=== PATIENT | female | born 1940 | race Caucasian/White ===

== ENCOUNTER → 2019-03-11 14:02 | Outpatient (CLI) | payer MEDICARE, OTHER, SELFPAY ==
[2019-03-11 14:46] LABS: Hematocrit 39.2 % (36-46); Hemoglobin 13.1 g/dL (12.0-16.0); Mean Corpuscular HGB Conc 33.4 % (30-36); Mean Corpuscular Hemoglobin 30.9 PG (26-34); Mean Corpuscular Volume 92.7 fL (80-100); Platelet Count 183 X10^3/uL (150-400); Red Blood Cell Count 4.22 X10^6/uL (4.0-5.2); Red Cell Distribution Width 12.7 % (11.6-14.8); White Blood Cell Count 6.5 X10^3/uL (4.5-11.0)
[2019-03-11 15:09] LABS: Hemoglobin A1C% w Est Avg Glu 5.2 % (4.0-6.0)
[2019-03-11 15:17] LABS: Blood Urea Nitrogen 28 mg/dL (7-17); Carbon Dioxide 30 mmol/L (22-32); Chloride 101 mmol/L (98-107); Estimated Glomerular Filt Rate > 60.0 mL/min (>60); Glucose 85 mg/dL (80-110); HEMOLYSIS < 15 (0-50); Potassium 4.2 mmol/L (3.4-5.1); Sodium 135 mmol/L (137-145)
[2019-03-11 15:22] LABS: Transferrin 247 mg/dL (206-381)
[2019-03-11 15:23] LABS: Bacteria Urine None Seen
[2019-03-11 15:36] LABS: Appearance Urine UA CLEAR; Bilirubin Urine UA NEGATIVE (NEGATIVE); Color Urine UA YELLOW; Glucose Urine UA NEGATIVE (Negative); Ketones Urine UA NEGATIVE (NEGATIVE); Leukocyte Esterase Urine UA 1+ (NEGATIVE); Nitrite Urine UA NEGATIVE (Negative); Occult Blood Urine UA NEGATIVE (Negative); Protein Urine UA NEGATIVE (Negative); Urobilinogen Urine UA 0.2 E.U./dL (0.2); pH Urine UA 6.5 (4.5-8.0)
[2019-03-11 15:52] LABS: RBC Urine 0-1/HPF (0-5/HPF); Squamous Epithelial Cell Urine 0-1 /HPF (0-5/HPF); Transitional Epi Cells Urine 0-1/HPF (0-5/HPF); WBC Urine 1-5/HPF (0-5/HPF)
== END ==
PROVIDERS: PCP Family Medicine; Visit Provider Orthopaedic Surgery
DX: E61.1 Iron deficiency (principal); N39.0 Urinary tract infection, site not specified; R73.9 Hyperglycemia, unspecified; Z01.818 Encounter for other preprocedural examination
CPT/HCPCS: 36415; 80048; 81001; 83036; 84466; 85027; 93005

== ENCOUNTER 2019-04-02 06:14 | Day surgery (SDC) | payer MEDICARE, OTHER, SELFPAY ==
[2019-03-22 08:57] VITALS: BMI 27.4
[2019-04-02] VITALS (14 sets, daily range): BP systolic 109–167; BP diastolic 40–73; PULSE 62–80; RESP 12–18; TEMP 35.7–36.8; O2SAT 95–99; BMI 28.8
--- NOTE | 2019-04-02 06:35 | DI.RAD.S_ITS ---
PROCEDURE: XR KNEE RT 1TO2V INDICATIONS: post op TECHNIQUE: 2 view(s) of the knee acquired. COMPARISON: None. FINDINGS: Bones: Patient is status post knee joint arthroplasty. Hardware components are in expected positions. Visualized bony structures are intact. Soft tissues: Overlying postoperative changes are noted. IMPRESSION: Expected immediate postoperative appearance, status post total right knee arthroplasty. Dictated by: Faraz Carranza M.D. on 04/02/2019 at 10:14 Approved by: Faraz Carranza M.D. on 04/02/2019 at 10:14
[2019-04-02] MEDS: ACETAMINOPHEN 325 MG TABLET 975 MG PO ×3 (06:58→20:40)
[2019-04-02] MEDS: PREGABALIN 75 MG CAPSULE PO (06:58)
[2019-04-02] MEDS: CELECOXIB 200 MG CAPSULE PO (06:58)
[2019-04-02] MEDS: MIDAZOLAM 2 MG/2 ML VIAL IV (07:40)
[2019-04-02] MEDS: fentaNYL 100 MCG/2 ML INJ 50 MCG IV ×2 (07:42→07:47)
--- NOTE | 2019-04-02 07:42 | PM.PREOP ---
Pre-operative Note Interval Note History & Physical reviewed/Exam performed by Physician: Yes Changes to H&P: No
--- NOTE | 2019-04-02 07:42 | PM.OP.1 ---
Operative Date/Time/Diagnoses Date of procedure: 04/02/19 Time of procedure: 09:20 Pre-op diagnosis: Right knee osteoarthritis Post-op diagnosis: same Procedure & Clinicians Procedure: Right total knee replacement Same procedure as scheduled: Yes Indications: The patient has had progressively worsening right knee pain with radiographic changes consistent with arthritis. Non-operative management has failed and the patient has requested total knee replacement. The risks, benefits and alternatives to surgery were discussed with the patient prior to proceeding. Risks discussed included, but were not limited to, failure to relieve pain, stiffness, infection, nerve damage, deep venous thrombosis, pulmonary embolism, stroke, coma, heart attack, permanent paralysis and , as well as the potential need for eventual revision of the prosthetic. Surgeon: Zach Kiser Sweeper Cleaner Industrial: Jovana Nichols Click Yes if Unassisted: No Anesthesia Type: General, Spinal, Peripheral nerve block and Local Operative Notes Findings: Significant medial and mild patellofemoral osteoarthritis. Closure Type: primary Specimen(s): none sent Prosthetic devices, grafts, tissues, transplants, or devices: Implants used in this procedure were manufactured by the [employer] and [employer] and included the BCS II Journey total knee replacement with a size 7 right cobalt chromium femoral component, a size 6 right non porous tibial base plate, a 10 mm polyethylene insert for the tibia and a 32 mm oval Cleopatra II patellar component. Applied: implant(s) Estimated Blood Loss (mL): 25 Blood products transfused: none Tourniquet time (min): 55 Procedure in detail: The patient was seen in the pre-operative area, where the patient identified the right knee as the operative site and this was marked with my initials. The patient received pre-operative antibiotics, and was taken to the operating room and placed on the operative table in the supine position. After satisfactory anesthesia, a evp global multimedia sales out was performed. The right leg was encircled with a tourniquet about the proximal thigh, and the leg was prepared from the toes to the tourniquet with ChloroPrep in the usual fashion and draped through sterile drapes. The leg was elevated and exsanguinated with Eschmark bandage and the tourniquet inflated to 250 mmHg pressure. The knee was approached through an approximately 18 cm incision centered over the patella and carried into the knee through a medial parapatellar arthrotomy. The anterior osteophytes and soft tissues were removed. The rotational landmarks of Renee's line and the transepicondylar axis were marked on the femur with electrocautery, and intramedullary guide holes for the femur and tibia were created. The distal femoral cut was made in 6 degrees of valgus using the intramedullary guide at the primary cut setting. The proximal tibial cut was then made using the intramedullary guide, taking 9 mm of bone off the less involved side. The extension gap was checked and the rotation of the femoral component confirmed with the gap balancing system. The anterior, posterior and chamfer cuts were then made. The posterior osteophytes and soft tissues were then removed. The posterior capsule was injected with part of a mixture of 50 ml 0.25% Marcaine mixed with 20 ml Exparel and 4 mg of morphine for post-operative pain control. The remainder of this mixture was injected into the capsule and subcutaneous tissues during cement curing. The tibia was prepared with the rotation set by an extra medullary guide. Trial tibial and femoral components were then placed and the intercondylar notch cut through the femoral trial. Range of motion was 0-135 degrees, with good stability throughout the range. The patella was then cut to accommodate the patellar prosthetic. There was no need for a lateral release. The trials were then removed, and the femoral hole plugged with a bone plug. The bone was prepared with pulsatile lavage, and dried with a sponge. Cement was applied and the final prosthetics placed. Excess cement was removed during and after cement curing. After confirming there was no extruded cement posteriorly, the final tibial insert was placed. The knee was copiously irrigated and the tourniquet deflated. Hemostasis was obtained. The capsule was closed with interrupted # 2 polyester suture. The subcutaneous layer was closed with 3-0 Vicryl, and the skin with a running 3-0 V-Lock suture and SteriStrips. An Aquacel Ag dressing was applied and the patient was taken to recovery having tolerated the procedure well. Complications: none Condition: stable Disposition: PACU Plan for aftercare: The patient will be maintained on a standard total knee replacement protocol with weight bearing as tolerated. The patient will receive aspirin and sequential compression devices for DVT prophylaxis. The patient will be discharged home when safe for the home environment.
--- NOTE | 2019-04-02 07:53 | SUR.PREOP ---
Block start time [0740] . Monitoring initiated and maintained throughout procedure. Oxygen and medications given per anesthesiologist instructions. Patient remained stable throughout procedure, no adverse reactions noted. Block end time [0748].
--- NOTE | 2019-04-02 08:20 | SUR.OPER ---
Supine on padded OR bed. Pillow under head, arms secured on padded armboards <90 degree abduction. Safety belt across torso. Non-operative leg secured with tape over blanket over lower leg. Operative leg secured in DeMayo positioner. Foam padded brace at thigh of operative leg.
[2019-04-02] MEDS: BUPIVACAINE 0.25% W/ EPI 30 ML VIAL 60 ML INJ (09:15)
[2019-04-02] MEDS: BUPIVACAINE LIPOSOME 266 MG/20 ML VIAL INJ (09:17)
[2019-04-02] MEDS: CEFAZOLIN 1 GM VIAL IV (09:17)
[2019-04-02] MEDS: MORPHINE 4 MG/ML INJ INJ (09:17)
--- NOTE | 2019-04-02 10:55 | PC.NURSE ---
Pt to room 217 via bed from PACU. Pt denies pain, nausea, shortness of breath or confusion. Pt oriented to room, call light, bed controls, and tv controls. Pt now drinking coffee and resting with family at the bedside.
[2019-04-02] MEDS: LACTATED RINGERS 1,000 ML 125 ML IV ×2 (11:26→19:09)
--- NOTE | 2019-04-02 14:25 | PT.IIE ---
Current Diagnoses Unilateral primary osteoarthritis, right knee (04/02/19) Surgery Performed Operation Date: 04/02/19 07:45 Actual Procedures p Total Knee Arthroplasty(Right) - Zach Kiser MD Surgical History (Last Updated 03/22/19 @ 09:15 by Corazon Morales RN) Hx of appendectomy (Acute) Hx of laminectomy (Acute) Hx of tonsillectomy (Acute) Medical History (Last Updated 03/22/19 @ 09:15 by Corazon Morales RN) Anxiety (Acute) Arthritis (Acute) Depression (Acute) HTN (hypertension) (Acute) Heartburn (Acute) Osteoarthritis (Acute) Physical Therapy Inpatient Evaluation/Re-Eval M1 PT/OT-IP Prior Functional Status Start: 04/02/19 11:33 Freq: NEEDED Status: Active Protocol: Document 04/02/19 14:25 AB (Rec: 04/02/19 15:37 AB [id number]) Medical Review Prior Functional Status Medical History Reviewed Yes Diet/Fluid Consistency Regular Communication Able to make needs known. Mobility and Gait pt stated that she is independent with all mobilities and ambulation without AD but uses a SPC for long distance ambulation. Social History Household Members spouse Living Arrangements House Number of Floors (Floors) One Floor Number of Stairs To Enter/Railing? no ANIKA Home Environment Standard Height Toilet Tub/Shower Home Equipment Front Wheel Walker Straight Cane Raised Toilet Seat w/Armrests Shower Seat with Backrest Grab Bars In Shower Employment Status Retired Additional Social History Comment pt is scheduled for outpt PT at [facility]. M2 PT-IP Current Condition Start: 04/02/19 11:33 Freq: NEEDED Status: Active Protocol: Document 04/02/19 14:25 AB (Rec: 04/02/19 15:37 AB [id number]) Physical Therapy Current Condition Current Condition Evaluation Date 04/02/19 Treatment Diagnosis s/p R TKA; difficulty in walking Onset Date 04/02/19 Weight Bearing Status Weight Bearing Status Weight Bear as Tolerated M3 PT-IP Subjective Start: 04/02/19 11:33 Freq: NEEDED Status: Active Protocol: Document 04/02/19 14:25 AB (Rec: 04/02/19 15:37 AB [id number]) Subjective Physical Therapy Visit Type Type Initial Evaluation Visit Start Time 14:25 Visit Stop Time 15:20 Total Visit Minutes 55 Number of SAS SQL DEVELOPER Visits 0 Physical Therapy Visit Comments Patient Comments pt agreeable to do PT Therapy Pain Assessment Pain When Pain Assessed At Rest Pain Present Pain Present Pain Reported Location Right Knee Intensity 3 Scale Used increases to 6/10 with mobility Pain Behaviors Guarding Pain Management Techniques Apply Cold Re-positioning Timing of Activity with Medications M4 PT-IP Mobility and Gait Start: 04/02/19 11:33 Freq: NEEDED Status: Active Protocol: Document 04/02/19 14:25 AB (Rec: 04/02/19 15:37 AB [id number]) PT-Bed Mobility Assessment Supine to Sit Supine to Sit Standby Assistance Sit to Supine Sit to Supine Standby Assistance Scooting Scooting to Edge of Bed Standby Assistance PT-Transfer Assessment Sit to and From Stand Sit to and from Stand Minimal Assistance Moderate Assistance 1 Person Assistance Use of Upper Extremities Equipment Transfer Assistive Device Gait Belt Front Wheeled Walker Orthotic/Prosthetic Devices or Brace: No Transfers Transfer Destination Bedside Commode Transfer Technique Stand Step Pivot Transfer Ability Level of Assist Moderate Assistance 1 Person Assistance Use of Upper Extremities Comments Mobility Comments pt completed bed mobility supine to sit SBA. pt was able to sit on EOB without c/o dizziness. pt completed sit to stand from EOB mod A and cues. upon standing, pt was voiding. instructed pt to sit back down. call light on for assistance. positioned bedside commode next to the bed. pt completed stand step transfer using FWW mod A and cues. pt completed sit to stand again min to mod A and cues from bedside commode but pt continues to void and has to sit back down. pt completed sit to stand again after a few minutes requiring min to mod A and cues. pt required mod A to maintain standing balance using FWW while pt is completing hygiene care. assisted pt with hygiene care from behind. pt with (+) LOB while doing hygiene care and required mod A to reposition. pt was able to ambulate ~ 3 ft towards the chair using FWW mod A and cues. pt agreed to do further ambulation after and completed ~ 12 ft of ambulation using FWW. pt agreed to sit up on chair after and assisted with positioning on the chair. call light and table placed within reach. Gait Assessment Gait Gait Assistance Required: Moderate Assistance Distance (Feet) 12 Able to Maintain Weight Bearing Status Yes During Gait Assistive Devices Assistive Device Gait Belt Front Wheeled Walker Orthotic/Prosthetic Devices or Brace: No Gait Deviations General Gait Pattern Antalgic Decreased Stride Length Decreased Feet Clearance Narrow Based Gait Factors Limiting Gait Function Factors Limiting Gait Function Decreased Activity Tolerance Decreased Strength Limited Range of Motion Pain Poor Balance Poor Safety Awareness Comments Gait Comments pt presents with antalgic gait and requires cues for quads activation on RLE. PT-Balance Assessment Sitting Balance and Reactions Static Sitting Balance Ability Good Dynamic Sitting Balance Ability Good Standing Balance and Reactions Static Standing Balance Ability Fair Dynamic Standing Balance Ability Fair Device Used FWW M5 PT-IP Objective Assessments Start: 04/02/19 11:33 Freq: NEEDED Status: Active Protocol: Document 04/02/19 14:25 AB (Rec: 04/02/19 15:37 AB [id number]) Orientation Orientation/Cognition Level of Alertness Alert Orientation Name Place Situation Language Function Ability No Deficits Noted Safety Awareness Decreased Safety Awareness Memory Description Short Term Impaired Gross Range of Motion Lower Extremity ROM Impairments R knee flexion ~ 80 deg Strength Lower Extremity Strength Assessment Right Impaired Knee 4-/5 Coordination Assessment Gross Coordination Gross Coordination WNL Sensation Assessment Sensation Gross Sensation WNL Muscle Tone Muscle Tone WNL Yes M6 PT-IP Treatment Start: 04/02/19 11:33 Freq: NEEDED Status: Active Protocol: Document 04/02/19 14:25 AB (Rec: 04/02/19 15:37 AB [id number]) Physical Therapy Treatment Exercises Exercises Heel Slides Education Education Provided Precautions Weight Bearing Status Post-Op Packet Safety M7 PT-IP Assessment and Plan Start: 04/02/19 11:33 Freq: NEEDED Status: Active Protocol: Document 04/02/19 14:25 AB (Rec: 04/02/19 15:37 AB [id number]) PT Summary Assessment and Plan Potential Rehabilitation Potential Good Status of Condition at Evaluation Stable Summary Impairments Pain ROM Strength Balance Coordination Sensation Tone Cognition Bed Mobility Transfers Gait Activity Tolerance Assessment Summary pt requires min to mod A with mobility and plans to go home with spouse to assist her. caregiver training will be conducted when appropriate and spouse plans to be here at around 9 am tomorrow 04/03/19 for possible caregiver training. will continue to assess pt. Goals Bed Mobility Goal Standby Assistance Transfer Goal Standby Assistance Front Wheeled Walker Gait Goal Standby Assistance Front Wheel Walker Gait Distance 250 Days to Meet Goals 3 Frequency of Treatment Frequency Of Treatment Twice a Day Treatment Plan Physical Therapy Treatment Plan Bed Mobility Training Transfer Training Gait Training Therapeutic Exercise Balance Retraining Post Op Education Discharge Planning Hot or Cold Pack Neuromuscular Re-ed Coordination Retraining Manual Therapy Other Recommendations and Next Treatment ambulation, caregiver training Focus Recommendations To Nursing Amount of Assist Needed 1 Person Assist Discharge Recommendations PT Discharge Recommendations Home with Assistance Outpatient PT
[2019-04-02] MEDS: OXYCODONE IR 5 MG TABLET PO (16:51)
--- NOTE | 2019-04-02 20:38 | PC.NURSE ---
Noted pt does not have postoperative antibiotics ordered. Alden BACON followed up with surgery where Dr. Kiser is in a case. Per ONLINE CONTENT DEVELOPER Alden, Dr. Kiser is not ordering these postoperatively.
[2019-04-02] MEDS: ASPIRIN EC 81 MG TABLET PO (20:40)
[2019-04-02] MEDS: DOCUSATE 100 MG CAPSULE PO (20:40)
[2019-04-02] MEDS: NORTRIPTYLINE 10 MG CAPSULE 30 MG PO (20:41)
[2019-04-03] MEDS: OXYCODONE IR 5 MG TABLET PO (02:47)
[2019-04-03 05:47] VITALS: BP 135/69; PULSE 68; RESP 16; TEMP 36.2; O2SAT 98
[2019-04-03 08:00] VITALS: BP 152/70; PULSE 66; RESP 16; TEMP 36.3; O2SAT 98
[2019-04-03] MEDS: ACETAMINOPHEN 325 MG TABLET 975 MG PO (08:53)
[2019-04-03] MEDS: ATENOLOL 25 MG TABLET PO (08:53)
[2019-04-03] MEDS: ESCITALOPRAM 10 MG TABLET 20 MG PO (08:53)
[2019-04-03] MEDS: DOCUSATE 100 MG CAPSULE PO (08:53)
[2019-04-03] MEDS: AMLODIPINE 5 MG TABLET 10 MG PO (08:53)
[2019-04-03] MEDS: ASPIRIN EC 81 MG TABLET PO (08:54)
[2019-04-03] MEDS: MELOXICAM 7.5 MG TABLET 15 MG PO (08:56)
[2019-04-03] MEDS: SODIUM CHLORIDE 0.9% FLUSH 10 ML IV (08:57)
[2019-04-03 09:06] VITALS: BP 152/70
[2019-04-03] MEDS: LISINOPRIL 20 MG TABLET PO (09:06)
--- NOTE | 2019-04-03 09:47 | PM.DS.1 ---
History of Present Illness Date Patient Seen: 04/03/19 Time Patient Seen: 09:47 Chief complaint: [id number] Right Total Knee Arthroplasty Narrative: The history and physical are contained in the chart in a previously completed note. Please refer to that note for this information. Discharge Providers Date of admission: 04/02/19 06:14 Discharge Date: 04/03/19 Primary care physician: Lisette Sanders MD Consults: 04/02/19 10:27 Consult to Discharge Planning Routine Comment: Consult to Physical Therapy Evaluate & Treat Comment: Physician Instructions: postop TKA protocol Discharge provider: Zach Kiser MD Summary Discharge Diagnosis: 1. Right knee osteoarthritis 2. Post hemorrhagic anemia Hospital Course: The patient was admitted to the hospital and taken directly to the operating room where she underwent a right total knee replacement. She tolerated the procedure well. On postoperative day 1 she was comfortable and had made good early progress with physical therapy. It was her stated desire to be discharged on postoperative day 1. At the time of this dictation it is anticipated she will be ready to go home later in the day after additional physical therapy. Status at Discharge Cognitive/behavioral status at discharge: oriented Functional status at discharge: uses cane/walker Overall status at discharge: patient is progressing back to baseline Time Spent with Patient Less than 30 minutes Exam Vital Signs (past 8 hours): - 04/03/19 05:47 04/03/19 08:00 04/03/19 09:06 Temperature 97.1 F L 97.4 F L Pulse Rate 68 66 Respiratory Rate 16 16 Blood Pressure 135/69 152/70 H 152/70 H Pulse Oximetry 98 98 Oxygen Delivery Method Room Air Oxygen Flow Rate 0 Narrative Exam Narrative: Right knee wound is dressed with no drainage on the bandage. Calf is soft. Light touch and motion are intact in the right lower extremity. Objective Labs Result Diagrams: 04/03/19 05:33 Labs: Laboratory Results - last 24 hr 04/03/19 05:33 Hgb 12.0 Hct 35.0 L Discharge Plan Discharge Plan Patient Disposition: Home Discharge Med Rec/Prescriptions Prescriptions: New acetaminophen 325 mg Tablet 975 mg PO TID 30 Days Qty: 270 RF: 0 aspirin 81 mg Tablet,Delayed Release (Dr/Ec) 81 mg PO BID Qty: 42 RF: 0 oxycodone 5 mg Tablet 5 mg PO Q3HR PRN (Reason: Pain, Moderate (4-6)) Qty: 40 RF: 0 Continued lisinopril 20 mg Tablet 20 mg PO DAILY RF: 0 atenolol 25 mg Tablet 25 mg PO DAILY RF: 0 amlodipine 5 mg Tablet 10 mg PO DAILY RF: 0 nortriptyline 10 mg Capsule 30 mg PO BEDTIME RF: 0 escitalopram oxalate 20 mg Tablet 20 mg PO DAILY RF: 0 naproxen sodium [Aleve] 220 mg Capsule 440 mg PO BID RF: 0 Follow up/Referrals: Lisette Sanders MD [Primary Care Provider] - Zach Kiser MD [Physician] - 3-5 Days Provider Discharge Instructions Diet: Diet as Tolerated and Regular Cold/Heat Therapy: Apply ice for 15 minutes every hour as needed to the right knee for pain control. Skin/Wound/Dressing Care Report to your healthcare provider any signs of infection, such as:: chills, fever, night sweats, increased pain, unusual drainage and unusual redness Dressing: You may remove the Cornelio wrap 3 days after surgery. You may then shower normally with the deeper dressing in place. Leave the deeper dressing in place until follow-up. If the central strip of the deeper dressing becomes saturated with either water or blood please call the office. Visit Report/Discharge Packet Instructions: DI for Knee Replacement Stand Alone Forms: Surgery Discharge Discharge Data Primary Care Provider: Lisette Sanders Attending Provider: Zach Kiser Admit Date/Time: 04/02/19 06:14 Quality VTE Deep Vein Thrombosis/Pulmonary Embolism Present on Admission: No
--- NOTE | 2019-04-03 11:05 | PT.IPTN ---
Current Diagnoses Unilateral primary osteoarthritis, right knee (04/02/19) Surgery Performed Operation Date: 04/02/19 07:45 Actual Procedures p Total Knee Arthroplasty(Right) - Zach Kiser MD Physical Therapy Treatment Note M2 PT-IP Current Condition Start: 04/02/19 11:33 Freq: NEEDED Status: Active Protocol: Document 04/02/19 14:25 AB (Rec: 04/02/19 15:37 AB [id number]) Physical Therapy Current Condition Current Condition Evaluation Date 04/02/19 Treatment Diagnosis s/p R TKA; difficulty in walking Onset Date 04/02/19 Weight Bearing Status Weight Bearing Status Weight Bear as Tolerated M3 PT-IP Subjective Start: 04/02/19 11:33 Freq: NEEDED Status: Active Protocol: Document 04/03/19 11:10 GGD (Rec: 04/03/19 12:32 GGD [id number]) Subjective Physical Therapy Visit Type Type Treatment Note Visit Start Time 10:44 Visit Stop Time 11:08 Total Visit Minutes 24 Number of VARITYPE OPERATOR Visits 1 Physical Therapy Visit Comments Patient Comments Pt states she doing better. Therapy Pain Assessment Pain When Pain Assessed At Rest Pain Present Pain Present Pain Reported Location Right Knee Intensity 2 M4 PT-IP Mobility and Gait Start: 04/02/19 11:33 Freq: NEEDED Status: Active Protocol: Document 04/03/19 11:10 GGD (Rec: 04/03/19 12:32 GGD [id number]) PT-Bed Mobility Assessment Supine to Sit Supine to Sit Standby Assistance Sit to Supine Sit to Supine Standby Assistance Scooting Scooting to Edge of Bed Standby Assistance PT-Transfer Assessment Sit to and From Stand Sit to and from Stand Standby Assistance Use of Upper Extremities Equipment Transfer Assistive Device Gait Belt Front Wheeled Walker Orthotic/Prosthetic Devices or Brace: No Transfers Transfer Destination Bed Transfer Ability Level of Assist Contact Guard Assistance Use of Upper Extremities Gait Assessment Gait Gait Assistance Required: Contact Guard Assist 1 Person Assist Distance (Feet) 50 Able to Maintain Weight Bearing Status Yes During Gait Assistive Devices Assistive Device Gait Belt Front Wheeled Walker Orthotic/Prosthetic Devices or Brace: No Gait Deviations General Gait Pattern Antalgic Decreased Stride Length Decreased Feet Clearance Narrow Based Gait Factors Limiting Gait Function Factors Limiting Gait Function Decreased Activity Tolerance Decreased Strength Limited Range of Motion Pain Poor Balance Poor Safety Awareness M5 PT-IP Objective Assessments Start: 04/02/19 11:33 Freq: NEEDED Status: Active Protocol: Document 04/02/19 14:25 AB (Rec: 04/02/19 15:37 AB [id number]) Orientation Orientation/Cognition Level of Alertness Alert Orientation Name Place Situation Language Function Ability No Deficits Noted Safety Awareness Decreased Safety Awareness Memory Description Short Term Impaired Gross Range of Motion Lower Extremity ROM Impairments R knee flexion ~ 80 deg Strength Lower Extremity Strength Assessment Right Impaired Knee 4-/5 Coordination Assessment Gross Coordination Gross Coordination WNL Sensation Assessment Sensation Gross Sensation WNL Muscle Tone Muscle Tone WNL Yes M6 PT-IP Treatment Start: 04/02/19 11:33 Freq: NEEDED Status: Active Protocol: Document 04/03/19 11:10 GGD (Rec: 04/03/19 12:32 GGD [id number]) Physical Therapy Treatment Exercises Exercises Ankle Pumps Gluteal Sets Quad Sets Heel Slides Short Arc Quads Seated Knee Flexion/Extension Education Education Provided Safety M7 PT-IP Assessment and Plan Start: 04/02/19 11:33 Freq: NEEDED Status: Active Protocol: Document 04/03/19 11:10 GGD (Rec: 04/03/19 12:32 GGD [id number]) PT Summary Assessment and Plan Summary Assessment Summary Pt improving with mobility. She was able to progress gait. She was slow with a step to gait pattern. She improved with bed mobility. Pt safe for home D/C when medically stable Frequency of Treatment Frequency Of Treatment Twice a Day Treatment Plan Physical Therapy Treatment Plan Bed Mobility Training Transfer Training Gait Training Therapeutic Exercise Balance Retraining Post Op Education Discharge Planning Hot or Cold Pack Neuromuscular Re-ed Coordination Retraining Manual Therapy Recommendations To Nursing Amount of Assist Needed 1 Person Assist Discharge Recommendations PT Discharge Recommendations Home with Assistance Outpatient PT
--- NOTE | 2019-04-03 11:38 | CM.DANOTE ---
DCP/Assessment: Reviewed chart. Patient is a 78yr old female admitted to [facility] for right TKA performed on 04-02-[address] Kiser. PCP is Dr. Sanders. Primary payor is 1)Medicare 2)Commercial Insurance. Met tata patient and spouse/Magdaleno at bedside explained CM/SW role. Patient working with PT at time of visit. Patient ambulating in hallway with FWW. Current d/c plan is for patient to d/c home with outpatient therapy. Patient reports that outpatient therapy already scheduled in [facility]. Both patient and spouse report that patient I in ADL's prior to coming in. Patient has all needed DME and drives at baseline. Patient planning on discharge today. Per therapy patient is fine to return home. P: Home today. CHARLES Licea Discharge Planning/Care Management Advanced directive, confirm from FAMILY Start: 04/02/19 10:38 Freq: Q24H Status: Active Protocol: Document 04/02/19 10:38 JESSY (Rec: 04/02/19 10:39 JESSY [id number]) Advance Directive, confirm on record Time 10:39 Person contacted Jnog, Copy received No CM Discharge Assessment Start: 04/03/19 11:32 Freq: Status: Active Protocol: Document 04/03/19 11:32 KJS (Rec: 04/03/19 11:37 KJS [id number]) Discharge Planning Assessment Assigned Tax Expert CHARLES Licea Contact Information Magdaleno Long (spouse) Advance Directives? Yes Advance Directives on File No History Provided By Patient Significant Other Medical Record Prior Living Arrangements House Household Members spouse Type of transporation used prior to Drives own vehicle admit Independent with ADL's Yes Is patient alert and oriented? Yes Caregiver for Another No DME Already Rented / Owned FWW / Walker Patient/Family Preference OP PT Therapy Barriers to Discharge No Discharge Plan Home Transportation Arrangement Family to provide transport home. Referrals Initiated None needed Whiteboard Updated in Patient Room with Yes name and ext. # of Tax Expert Review Status In Process Next Review Type Continued Stay Review Pre-Anesthesia Assessment Start: 03/22/19 08:56 Freq: Status: Active Protocol: Document 03/22/19 08:57 CAB (Rec: 03/22/19 09:29 CAB [id number]) Pre-Anesthesia Assessment Patient Also Known As (AKA) Sandy Patient Information Reviewed Via Phone Assessment Assessment Completed With Patient Diagnostic Results BMP/CMP CBC EKG Other Comment A1c. Labs/EKG @ 03/11/19 Primary Care Provider Lisette Sanders Seen Specialist in Last 12 Months Yes Specialist Seen Orthopedist Primary Language Central African Education Department Registrar Required No Height 162.56 cm Weight 72.575 kg Body Mass Index (BMI) 27.4 Hearing Ability Normal Visual Impairment No Limitations Visual Assist None Dentition Type Teeth, Natural Present Barriers to Learning None Memory Hx Anesthesia Reactions No Hx Family Anesthesia Reaction No Hx Malignant Hyperthermia No Hx Blood Transfusions No Anesthesia Review Requested No alcohol intake current alcohol intake frequency 0-2 drinks per day Smoking Status Former smoker how long ago did patient quit smoking Quit Substance Use Type does not use Pain Present Pain Reported Musculoskeletal Symptoms Abnormal Gait Difficulty Walking Joint Pain Limited Range of Motion Muscle Cramps History of Falling (Recent or History of Yes ) Patient is completely paralyzed or No completely immobile Prosthesis or Orthotic Device Cane Mental Status Oriented to own ability Is patient on oxygen? No Does patient have CATES/SOB No Hx Sleep Apnea No Currently Taking a Beta [place] Yes: Atenolol Can You Climb a Flight of Stairs Without No SOB Hx Chest Pain No Hx SOB No Hx Syncope or Dizziness No Anti-Coagulant Therapy No Has a Breast Surgeon No Cardiac Testing No Hx Pacemaker/ICD No Pacemaker Rep Required? No Cardiac Clearance Received Not Applicable Diet Type At Home Regular dysphagia No Bladder Pattern Incontinent Urgency Urinary Catheter Present No Hx Urinary Self Catheterization No Diabetes No Patient No Lactating No Hx Drug Resistant Organism No Presence of External or Internal Medical No Devices Have you traveled outside the [facility] in the last 30 days? Marital Status Lives With spouse Prior Living Arrangements House Number of Floors (Floors) One Floor Support System Child/Children Spouse Does the Patient Have Assistance After Yes Surgery Patient Discharge Plan Description Return Home Comment Pt advised overnight length of stay per surgeon's office Feels Safe in Current Environment Yes Been Physically Hurt or Threatened By a No Person in Current Environment Do you have thoughts of harming yourself None or others? Are you currently considering suicide? No Do you have a plan to hurt yourself or No Plan others? Do You Have Any Spiritual Beliefs That No May Affect Your HC Choices? Do You Have Any Cultural Practices That No May Affect Your HC Choices? Spiritual Referral None Comment Yazidism Who Can We Speak to About Patient's Care Family, friends Identifying Code for Release of Patient Declines to issue Information Health Care Proxy/Next of Kin Jong () Health Care Proxy Emergency Contact Name Letha (daughter) Emergency Contact Advance Directives? Yes Requested Patient Bring Advanced Yes Directives DOS Power of Mud Car Worker Yes Power of Mud Car Worker Name John (daughters) Power of Mud Car Worker Phone Number Letha: [phone] Amanda: [phone] PAC Instructions Do not shave/clip surgical site Durable medical equipment Medications to take/avoid Nasal antibiotic No ETOH/petroleum product on skin DOS NPO Pre-surgical wash Sturdy shoes/comfortable clothes Do not bring valuables and remove jewelry
--- NOTE | 2019-04-03 13:04 | PC.NURSE ---
Pt dressed and ready for discharge home with Spouse. Reviewed d/c information-medications, time of last dose, s/s of infection, encouraged fluid intake to prevent constipation or dehydration, stroke education and follow up. Pt and Spouse deny further questions and Pt was taken out via w/c to POV by UAT TESTER with Spouse and all belongings.
== END 2019-04-03 13:07 | disposition home or self-care (01) ==
LOC: AC 04-03 09:46 → OR 04-04 02:07
PROVIDERS: PCP Family Medicine; Visit Provider Orthopaedic Surgery
PROC: 0SRC0JZ Replacement of Right Knee Joint with Synthetic Substitute, Open Approach (ICD-10-PCS; CPT 27447; principal; 2019-04-02 07:45)
DX: M17.11 Unilateral primary osteoarthritis, right knee (principal); G89.18 Other acute postprocedural pain; Z87.891 Personal history of nicotine dependence
CPT/HCPCS: 27447; 36415; 64447; 64450; 73560; 85014; 85018; 97110; 97116; 97161; 97530; C1776; C9290; J0690; J1100; J2250; J2270; J2405; J2704; J3010

== ENCOUNTER 2019-08-11 14:01 | Observation (INO) | payer MEDICARE, OTHER, SELFPAY ==
[2019-04-02 10:31] VITALS: BMI 28.8
[2019-07-27 09:48] VITALS: BMI 28.6
[2019-08-10] VITALS (14 sets, daily range): BP systolic 112–158; BP diastolic 54–74; PULSE 51–63; RESP 9–21; TEMP 35.9–36.6; O2SAT 94–100; BMI 28.6
--- NOTE | 2019-08-10 06:00 | DI.RAD.S_ITS ---
PROCEDURE: XR KNEE LT 1TO2V INDICATIONS: post op TECHNIQUE: 2 view(s) of the knee acquired. COMPARISON: [facility] Espino, SRIKANTH, XR KNEE ARTHRITIC SERIES LT, 06/09/2019, 10:59. FINDINGS: Bones: Patient is status post knee joint arthroplasty. Hardware components are in expected positions. Visualized bony structures are intact. Soft tissues: Overlying postoperative changes are noted. IMPRESSION: Left knee arthroplasty with prosthesis in anatomic alignment. Dictated by: Miguelangel Nguyen M.D. on 08/10/2019 at 15:41 Approved by: Miguelangel Nguyen M.D. on 08/10/2019 at 15:41
[2019-08-10] MEDS: PREGABALIN 75 MG CAPSULE PO (08:57)
[2019-08-10] MEDS: ACETAMINOPHEN 325 MG TABLET 975 MG PO (08:57)
[2019-08-10] MEDS: CELECOXIB 200 MG CAPSULE PO (08:58)
[2019-08-10] MEDS: LACTATED RINGERS 1,000 ML 42 ML IV ×2 (09:05→11:50)
--- NOTE | 2019-08-10 09:46 | PM.PREOP ---
Pre-operative Note Interval Note History & Physical reviewed/Exam performed by Physician: Yes Changes to H&P: No
--- NOTE | 2019-08-10 10:03 | PM.OP.1 ---
Operative Date/Time/Diagnoses Date of procedure: 08/10/19 Time of procedure: 12:18 Pre-op diagnosis: Left knee osteoarthritis Post-op diagnosis: same Procedure & Clinicians Procedure: Left total knee replacement Same procedure as scheduled: Yes Indications: The patient has had progressively worsening left knee pain with radiographic changes consistent with arthritis. Non-operative management has failed and the patient has requested total knee replacement. The risks, benefits and alternatives to surgery were discussed with the patient prior to proceeding. Risks discussed included, but were not limited to, failure to relieve pain, stiffness, infection, nerve damage, deep venous thrombosis, pulmonary embolism, stroke, coma, heart attack, permanent paralysis and , as well as the potential need for eventual revision of the prosthetic. Surgeon: Zach Kiser Flower Buncher Or Picker: Nani Madrid Click Yes if Unassisted: No Anesthesia Type: General, Spinal and Local Operative Notes Findings: Moderately severe medial and patellofemoral osteoarthritis with mild varus deformity. Closure Type: primary Specimen(s): none sent Prosthetic devices, grafts, tissues, transplants, or devices: Implants used in this procedure were manufactured by the [employer] and included the BCS II Journey total knee replacement with a size 7 cobalt chromium femur, a size 5 non porous tibial base plate, a 10 mm cross-linked polyethylene tibial insert and a 32 mm oval Cleopatra II patella. Applied: implant(s) Estimated Blood Loss (mL): 50 Blood products transfused: none Tourniquet time (min): 48 Procedure in detail: The patient was seen in the pre-operative area, where the left knee was identified as the operative site and this was marked with my initials. The patient received pre-operative antibiotics, and was taken to the operating room and placed on the operative table in the supine position. After satisfactory anesthesia, a multimedia services manager out was performed. The left leg was encircled with a tourniquet about the proximal thigh, and the leg was prepared from the toes to the tourniquet with ChloroPrep in the usual fashion and draped through sterile drapes. The leg was elevated and exsanguinated with Eschmark bandage and the tourniquet inflated to 250 mmHg pressure. The knee was approached through an approximately 18 cm incision centered over the patella and carried into the knee through a medial parapatellar arthrotomy. The anterior osteophytes and soft tissues were removed. The rotational landmarks of [place]'s line and the transepicondylar axis were marked on the femur with electrocautery, and intramedullary guide holes for the femur and tibia were created. The distal femoral cut was made in 6 degrees of valgus using the intramedullary guide at the primary cut setting. The proximal tibial cut was then made using the intramedullary guide, taking 9 mm of bone off the less involved side. The extension gap was checked and the rotation of the femoral component confirmed with the gap balancing blocks. The anterior, posterior and chamfer cuts were then made. The posterior osteophytes and soft tissues were then removed. The posterior capsule was injected with part of a mixture of 60 ml 0.25% Marcaine mixed with 20 ml Exparel and 4 mg of morphine for post-operative pain control. The remainder of this mixture was injected into the capsule and subcutaneous tissues during cement curing. The tibia was prepared with the rotation set by an extra medullary guide. Trial tibial and femoral components were then placed and the intercondylar notch cut through the femoral trial. Range of motion was 0-135, with good stability throughout the range. The patella was then cut to accommodate the patellar prosthetic. There was excellent patellar tracking, however there was some lateral patellar tilt so a ?pie crust? type lateral release was performed. The trials were then removed, and the femoral hole plugged with a bone plug. The bone was prepared with pulsatile lavage, and dried with a sponge. Cement was applied and the final prosthetics placed. Excess cement was removed during and after cement curing. After confirming there was no extruded cement posteriorly, the final tibial insert was placed. The knee was copiously irrigated and the tourniquet deflated. Hemostasis was obtained. The capsule was closed with interrupted # 2 polyester sutures. The subcutaneous layer was closed with 3-0 Vicryl, and the skin with a running 3-0 V-Lock suture and SteriStrips. An Aquacel Ag dressing was applied and the patient was taken to recovery having tolerated the procedure well. Complications: none Post-operative Condition: stable Disposition: PACU Plan for aftercare: The patient will be maintained on a standard total knee replacement protocol with weight bearing as tolerated. The patient will receive aspirin and sequential compression devices for DVT prophylaxis. The patient will be discharged home when safe for the home environment.
[2019-08-10] MEDS: CEFAZOLIN 2 GM/100 ML FROZ.PIGGY IV (10:30)
[2019-08-10] MEDS: TRANEXAMIC ACID 1,000 MG VIAL 1000 MG INJ ×2 (11:06→11:48)
[2019-08-10] MEDS: BUPIVACAINE LIPOSOME 266 MG/20 ML VIAL INJ (11:06)
[2019-08-10] MEDS: BUPIVACAINE 0.25% W/ EPI (PF) 10 ML VIAL 60 ML INJ (11:08)
[2019-08-10] MEDS: MORPHINE 4 MG/ML INJ INJ (11:08)
--- NOTE | 2019-08-10 11:16 | SUR.OPER ---
Supine on padded OR bed. Pillow under head, arms secured on padded armboards <90 degree abduction. Safety belt across torso. Non-operative leg secured with tape over blanket over lower leg. Operative leg secured in DeMayo positioner.
--- NOTE | 2019-08-10 12:46 | SUR.PHASEI ---
Pt. awake, stable, tolerating sips of water, Stable; waiting for floor to return call for report. Resp unlabored,skin warm and dry.
--- NOTE | 2019-08-10 12:51 | SUR.PHASEI ---
Pt rubbing at left upper eyelid, stated It was so swollen when I got up this morning. Eyelid pink
--- NOTE | 2019-08-10 13:03 | SUR.PHASEI ---
Pt stable, receiving RN is in a rapid response; waiting return of phone call. Pt A&O, stable, transitioned to phase II
--- NOTE | 2019-08-10 13:06 | SUR.PHASEII ---
HOB elevated, applesauce given, no nausea/pain
--- NOTE | 2019-08-10 13:17 | SUR.PHASEII ---
Report given to the floor RN, Annie. Pt tolerated applesauce and water well. Skin warm and dry, resp unlabored, LE stable.
--- NOTE | 2019-08-10 13:28 | SUR.PHASEII ---
1318 To room 224, bed down and locked, call light within reach, SCDs on. Clothing bag to closet. Pt A&O, VSS,report updated to 2nd RN.
[2019-08-10] MEDS: LACTATED RINGERS 1,000 ML 125 ML IV ×2 (13:32→21:22)
[2019-08-10] MEDS: ACETAMINOPHEN 325 MG TABLET 650 MG PO ×2 (16:28→20:38)
[2019-08-10] MEDS: OXYCODONE IR 5 MG TABLET PO (16:33)
--- NOTE | 2019-08-10 16:35 | PC.NURSE ---
Addendum entered by Jenna Venegas R.N. 08/10/19 20:44: Patient is resting in bed, watching TV. Breathing is unlabored, SCD's on bilaterally, IV patent and infusing, free of redness or s/s of complications. Patient has been up to bedside commode to void. 1p assist with walker. Patient is tolerating well. Denies further needs at this time. Call light in reach. Addendum entered by Jenna Venegas R.N. 08/10/19 16:41: Original Note: Patient A/Ox4 resting in bed with at bedside. Patient reports pain in left knee. Dsg CDI, no streaking, redness or notable drainage at this time. Distal pulses equal and WNL. Bilateral SCD's on. Discussed pain medication options, patient prefers to start with lower dose PRN oxy and increase as necessary. Patient denies shortness of breath, chest pain, dizziness, numbness or tingling in the extremities. Physical Therapy in to work with patient at this time. Call light in reach. Patient denies further needs at this time.
--- NOTE | 2019-08-10 17:29 | PT.IIE ---
Current Diagnoses Unilateral primary osteoarthritis, left knee (08/10/19) Surgery Performed Operation Date: 08/10/19 10:45 Actual Procedures p Total Knee Arthroplasty(Left) - Zach Kiser MD Surgical History (Last Updated 07/27/19 @ 10:19 by Corazon Morales, RN) History of arthroplasty of right knee (Acute 04/03/19) Hx of appendectomy (Acute) Hx of laminectomy (Acute) Hx of tonsillectomy (Acute) Medical History (Last Updated 03/22/19 @ 09:15 by Corazon Morales RN) Anxiety (Acute) Arthritis (Acute) Depression (Acute) Heartburn (Acute) HTN (hypertension) (Acute) Osteoarthritis (Acute) Physical Therapy Inpatient Evaluation/Re-Eval M1 PT/OT-IP Prior Functional Status Start: 08/10/19 14:04 Freq: NEEDED Status: Active Protocol: Document 08/10/19 17:12 AW (Rec: 08/10/19 17:28 AW [id number]) Medical Review Prior Functional Status Medical History Reviewed Yes Communication WNL Mobility and Gait Independent without assistive device with limit of ~4 blocks due to pain Activities of Daily Living and IADL's Indpendent Social History Household Members spouse Living Arrangements House Number of Floors (Floors) One Floor Number of Stairs To Enter/Railing? Short threshhold to enter Home Environment High Toilet Home Equipment Four Wheel Walker,Straight Cane,Raised Toilet Seat w/ Armrests,Long Handled Shoe Horn,Sock Aid,Grab Bars In Shower Additional Social History Comment Sandy lives with her who is able and available to assist regional construction manager M2 PT-IP Current Condition Start: 08/10/19 14:04 Freq: NEEDED Status: Active Protocol: Document 08/10/19 17:12 AW (Rec: 08/10/19 17:28 AW [email or web address]) Physical Therapy Current Condition Current Condition Evaluation Date 08/10/19 Treatment Diagnosis s/p L TKA, difficulty in walking Onset Date 08/10/19 Weight Bearing Status Weight Bearing Status Weight Bear as Tolerated M3 PT-IP Subjective Start: 08/10/19 14:04 Freq: NEEDED Status: Active Protocol: Document 08/10/19 17:12 AW (Rec: 08/10/19 17:28 AW [email or web address]) Subjective Physical Therapy Visit Type Type Initial Evaluation Visit Start Time 16:35 Visit Stop Time 17:10 Total Visit Minutes 35 Number of ACQUISITION EDITOR Visits 0 Physical Therapy Visit Comments Patient Comments Pt willing to work with PT Patient Goals Pt hopes to return home with spouse support as she did after her R TKA in March Therapy Pain Assessment Pain When Pain Assessed During Mobility Pain Present Pain Present Pain Reported Location Left Knee Intensity 7 Scale Used 4/10 at rest; 7/10 with mobility Pain Management Techniques Apply Cold,Re-positioning, Timing of Activity with Medications M4 PT-IP Mobility and Gait Start: 08/10/19 14:04 Freq: NEEDED Status: Active Protocol: Document 08/10/19 17:12 AW (Rec: 08/10/19 17:28 AW [email or web address]) PT-Bed Mobility Assessment Supine to Sit Supine to Sit Minimal Assistance,Head of Bed Elevated Scooting Scooting to Edge of Bed Standby Assistance PT-Transfer Assessment Sit to and From Stand Sit to and from Stand Minimal Assistance Equipment Transfer Assistive Device Gait Belt,Front Wheeled Walker Orthotic/Prosthetic Devices or Brace: No Transfers Transfer Destination Chair Transfer Technique Stand Step Pivot Transfer Ability Level of Assist Contact Guard Assistance Comments Mobility Comments Pt encountered sitting up in bed. She attempted supine to sit from flat bed but was unable due to feeling of nausea. She rested a minute with improved symptoms and then attempted supine to sit with HOB elevated which she tolerated better but still required min A x 1 to support and guide her operative leg. Sitting EOB, pt reported lightheadedness and slight nausea. BP supine was 119/67, sitting was 127/70. After clearing symptoms, pt stood with min A x 1 and FWW. Transfer to chair was completed with stand step pivot and FWW CGA. Verbal cues for sequencing and use of UE' s to control descent to sitting. Pt appeared pale and diaphoretic. BP after transfer was 97/56 HR 52. Pt was positioned in the chair, ice packs applied, call light within reach. RN notified of hypotensive episode. Gait Assessment Gait Gait Assistance Required: Contact Guard Assist Distance (Feet) 2 Able to Maintain Weight Bearing Status Yes During Gait Assistive Devices Assistive Device Gait Belt,Front Wheeled Walker Gait Deviations General Gait Pattern Antalgic,Decreased Stride Length,Decreased Feet Clearance,Step-to Gait Factors Limiting Gait Function Factors Limiting Gait Function Decreased Activity Tolerance, Decreased Strength,Limited Range of Motion,Pain Comments Gait Comments See mobility comments Stair Climbing Assessment Comments Stair Climbing Comments Not assessed PT-Balance Assessment Sitting Balance and Reactions Static Sitting Balance Ability Good Dynamic Sitting Balance Ability Good Standing Balance and Reactions Static Standing Balance Ability Good Dynamic Standing Balance Ability Fair Device Used FWW M5 PT-IP Objective Assessments Start: 08/10/19 14:04 Freq: NEEDED Status: Active Protocol: Document 08/10/19 17:12 AW (Rec: 08/10/19 17:28 AW [email or web address]) Orientation Orientation/Cognition Level of Alertness Alert Orientation Name,Day of Week,Place, Situation Language Function Ability No Deficits Noted Memory Description No Deficits Noted Gross Range of Motion Upper Extremity ROM Assessment Left Impaired Impairments Left shoulder flexion limited ~120 degrees. Pt was planning on TSA before deciding to prioritize TKA. Lower Extremity ROM Assessment Left Impaired Strength Lower Extremity Strength Assessment Left Impaired Coordination Assessment Gross Coordination Gross Coordination WNL Sensation Assessment Sensation Gross Sensation WNL M6 PT-IP Treatment Start: 08/10/19 14:04 Freq: NEEDED Status: Active Protocol: Document 08/10/19 17:12 AW (Rec: 08/10/19 17:28 AW [email or web address]) Physical Therapy Treatment Exercises Exercises Ankle Pumps,Gluteal Sets,Quad Sets,Heel Slides Education Education Provided Precautions,Weight Bearing Status,Post-Op Packet,Safety Other Treatments Other Treatment Performed PT reviewed plan of care, post -op exercises, weightbearing status, and safe use of FWW. M7 PT-IP Assessment and Plan Start: 08/10/19 14:04 Freq: NEEDED Status: Active Protocol: Document 08/10/19 17:12 AW (Rec: 08/10/19 17:28 AW [email or web address]) PT Summary Assessment and Plan Potential Rehabilitation Potential Excellent Status of Condition at Evaluation Evolving Summary Impairments Pain,ROM,Strength,Bed Mobility ,Transfers,Gait,Activity Tolerance Assessment Summary Sandy is a 79 yo woman with recent history of R TKA at this facility. She was seen for PT evaluation on POD0 following L TKA. PLOF: Pt was independnt in all regards. CLOF: Pt required min A x 1 for bed mobility and sit to stand, CGA for transfer to bedside chair. She is limited on this date by hypotensive episode and nausea. Will continue to assess for discharge disposition, but PT anticipates she will meet the functional goals of this plan of care and safely discharge home with family assist and outpatient PT once medically stable. Goals Bed Mobility Goal Standby Assistance Transfer Goal Standby Assistance,Front Wheeled Walker,Four Wheeled Walker Gait Goal Standby Assistance,Front Wheel Walker,Four Wheel Walker Gait Distance 150 Other Goals - up/down platform step with FWW SBA for safe entry to the home Days to Meet Goals 2 Frequency of Treatment Frequency Of Treatment Twice a Day Treatment Plan Physical Therapy Treatment Plan Bed Mobility Training,Transfer Training,Gait Training, Therapeutic Exercise,Balance Retraining,Post Op Education, Discharge Planning,Hot or Cold Pack,Neuromuscular Re-ed, Coordination Retraining,Manual Therapy Other Recommendations and Next Treatment assess gait, consider trial of Focus 4WW since that is pt's device of choice at home Recommendations To Nursing Amount of Assist Needed 1 Person Assist Discharge Recommendations PT Discharge Recommendations Home with Assistance, Outpatient PT Equipment Needed for Home Before may need FWW if unsafe with Discharge 4WW
[2019-08-10] MEDS: OXYCODONE IR 10 MG TABLET PO (19:28)
[2019-08-10] MEDS: DOCUSATE 100 MG CAPSULE PO (20:39)
[2019-08-10] MEDS: ASPIRIN EC 81 MG TABLET PO (20:39)
[2019-08-10] MEDS: AMLODIPINE 5 MG TABLET 10 MG PO (20:39)
[2019-08-10] MEDS: NORTRIPTYLINE 10 MG CAPSULE 30 MG PO (20:40)
[2019-08-11] VITALS (7 sets, daily range): BP systolic 123–153; BP diastolic 67–81; PULSE 57–67; RESP 16–19; TEMP 36.6–37.1; O2SAT 95–99
[2019-08-11] MEDS: OXYCODONE IR 10 MG TABLET PO ×4 (00:49→13:30)
[2019-08-11 05:24] LABS: Hematocrit 36.3 % (36-46); Hemoglobin 12.3 g/dL (12.0-16.0)
--- NOTE | 2019-08-11 07:39 | PM.DS.1 ---
History of Present Illness History of Present Illness Date Patient Seen: 08/11/19 Time Patient Seen: 07:39 Chief complaint: [id number] Left Total Knee Arthroplasty Narrative: The history and physical are contained in the chart previously completed note. Please refer to that note for this information. Discharge Providers Provider Date of admission: 08/10/19 08:24 Discharge Date: 08/11/19 Primary care physician: Lisette Sanders MD Consults: 08/10/19 13:27 Consult to Discharge Planning Routine Comment: Consult to Physical Therapy Evaluate & Treat Comment: Physician Instructions: postop TKA protocol Discharge provider: Zach Kiser MD Summary Hospital Course Discharge Diagnosis: Left knee osteoarthritis Hospital Course: The patient was admitted to the hospital and taken directly to the operating room on August 10, 2019. She underwent a left total knee replacement without difficulty. She made good early progress with physical therapy on the day of surgery despite mild nausea and lightheadedness. On postoperative day 1 it is anticipated she will be able to go home after additional therapy. Status at Discharge Cognitive/behavioral status at discharge: oriented Functional status at discharge: uses cane/walker Overall status at discharge: patient is progressing back to baseline Time Spent with Patient Time spent: Less than 30 minutes Exam Vital Signs (past 8 hours): - 08/11/19 00:40 08/11/19 05:10 Temperature 98.2 F 97.9 F Pulse Rate 67 62 Respiratory Rate 19 17 Blood Pressure 150/68 H 133/81 Pulse Oximetry 96 98 Oxygen Delivery Method Room Air Oxygen Flow Rate 0 Narrative Exam Narrative: Left knee wound is dressed with no drainage on the bandage. Calf is soft. Light touch and motion are intact in the left lower extremity. Objective Labs Result Diagrams: 08/11/19 04:42 Labs: Laboratory Results - last 24 hr 08/11/19 04:42 Hgb 12.3 Hct 36.3 Discharge Plan Discharge Plan Patient Disposition: Home Discharge orders & Medications Prescriptions: New acetaminophen 325 mg Tablet 650 mg PO TID 30 Days Qty: 180 RF: 0 aspirin 81 mg Tablet,Delayed Release (Dr/Ec) 81 mg PO BID 42 Days Qty: 84 RF: 0 oxycodone 5 mg Tablet 5 mg PO Q3HR PRN (Reason: Pain, Moderate (4-6)) Qty: 40 RF: 0 Continued lisinopril 20 mg Tablet 20 mg PO DAILY RF: 0 atenolol 25 mg Tablet 25 mg PO DAILY RF: 0 amlodipine 5 mg Tablet 10 mg PO BEDTIME RF: 0 nortriptyline 10 mg Capsule 30 mg PO BEDTIME RF: 0 escitalopram oxalate 20 mg Tablet 20 mg PO DAILY RF: 0 naproxen sodium [Aleve] 220 mg Capsule 440 mg PO BID PRN (Reason: Pain) RF: 0 Follow up/Referrals: Lisette Sanders MD [Primary Care Provider] - Zach Kiser MD [Physician] - 3-5 Days Discharge Health Status Multidrug resistant organism: No MDRO Diet/Activity/Treatments Diet: Diet as Tolerated and Regular Activity: You may bear weight as tolerated on your left leg. Cold/Heat Therapy: Apply ice for 15 minutes of every hour as needed to the left knee for pain control. Skin/Wound/Dressing Care Report to your healthcare provider any signs of infection, such as:: chills, fever, night sweats, increased pain, unusual drainage and unusual redness Dressing: Remove the Cornelio wrap 3 days after surgery. You may then shower normally with the deeper dressing in place. Leave the deeper dressing in place until follow-up. If the center strip of the deep dressing becomes saturated with either water or blood, please call the office. Visit Report/Discharge Packet Instructions: DI for Knee Replacement Stand Alone Forms: Surgery Discharge Discharge Data Primary Care Provider: Lisette Sanders
[2019-08-11] MEDS: ACETAMINOPHEN 325 MG TABLET 650 MG PO ×3 (10:03→20:00)
[2019-08-11] MEDS: POLYETHYLENE GLYCOL 3350 17 GM POWD.PACK PO (10:03)
[2019-08-11] MEDS: DOCUSATE 100 MG CAPSULE PO ×2 (10:03→20:00)
[2019-08-11] MEDS: ATENOLOL 25 MG TABLET PO (10:04)
[2019-08-11] MEDS: ASPIRIN EC 81 MG TABLET PO ×2 (10:04→20:00)
[2019-08-11] MEDS: LISINOPRIL 20 MG TABLET PO (10:04)
--- NOTE | 2019-08-11 11:53 | PT.IPTN ---
Current Diagnoses Unilateral primary osteoarthritis, left knee (08/10/19) Surgery Performed Operation Date: 08/10/19 10:45 Actual Procedures p Total Knee Arthroplasty(Left) - Zach Kiser MD Physical Therapy Treatment Note M2 PT-IP Current Condition Start: 08/10/19 14:04 Freq: NEEDED Status: Active Protocol: Document 08/10/19 17:12 AW (Rec: 08/10/19 17:28 AW [email or web address]) Physical Therapy Current Condition Current Condition Evaluation Date 08/10/19 Treatment Diagnosis s/p L TKA, difficulty in walking Onset Date 08/10/19 Weight Bearing Status Weight Bearing Status Weight Bear as Tolerated M3 PT-IP Subjective Start: 08/10/19 14:04 Freq: NEEDED Status: Active Protocol: Document 08/11/19 10:45 HH (Rec: 08/11/19 11:53 HH [email or web address]) Subjective Physical Therapy Visit Type Type Treatment Note Visit Start Time 10:45 Visit Stop Time 11:05 Total Visit Minutes 20 Number of BELT MOLDER Visits 0 Physical Therapy Visit Comments Patient Comments Pt willing to work with PT and wanted to attempt using 4WW Therapy Pain Assessment Pain When Pain Assessed During Mobility Pain Present Pain Present Pain Reported Location Left Knee Intensity 6 Scale Used 4/10 at rest; 6/10 with mobility Pain Management Techniques Apply Cold,Re-positioning, Timing of Activity with Medications M4 PT-IP Mobility and Gait Start: 08/10/19 14:04 Freq: NEEDED Status: Active Protocol: Document 08/11/19 10:45 HH (Rec: 08/11/19 11:53 HH [email or web address]) PT-Bed Mobility Assessment Supine to Sit Supine to Sit Contact Guard Assistance Scooting Scooting to Edge of Bed Contact Guard Assistance PT-Transfer Assessment Sit to and From Stand Sit to and from Stand Minimal Assistance Equipment Transfer Assistive Device Gait Belt,Front Wheeled Walker Orthotic/Prosthetic Devices or Brace: No Transfers Transfer Destination Chair Transfer Technique Stand Step Pivot Transfer Ability Level of Assist Contact Guard Assistance Comments Mobility Comments Pt was in bed upon assessment with BP 140/73. She completed supine to long sit with using R bed rail to push off, and able to use R LE to unweight LLE to pivot towards her L EOB , but very slowly. Pt scooted towards EOB slowly afterwards. She then stood up with min A and staggered stance. Needed cues to place one UE on walker and bed. She then stood up with min A and performed lateral weight shift. Pt transfered herself back to chair with proper hand placement and slow descent but safely. Call light placed within reach. Gait Assessment Gait Gait Assistance Required: Contact Guard Assist Distance (Feet) 14 Able to Maintain Weight Bearing Status Yes During Gait Assistive Devices Assistive Device Gait Belt,Front Wheeled Walker Gait Deviations General Gait Pattern Antalgic,Decreased Stride Length,Decreased Feet Clearance,Step-to Gait Factors Limiting Gait Function Factors Limiting Gait Function Decreased Activity Tolerance, Decreased Strength,Limited Range of Motion,Pain Comments Gait Comments Pt amb from L side EOB towards room door and back to chair. Pt amb slowly with step to and antalgic gait. Pt primarily WB through B UEs and RLEs. However, both pt and her reports she was actually amb faster for her last R TKA. Stair Climbing Assessment Comments Stair Climbing Comments unable to assess PT-Balance Assessment Sitting Balance and Reactions Static Sitting Balance Ability Good Dynamic Sitting Balance Ability Good Standing Balance and Reactions Static Standing Balance Ability Good Dynamic Standing Balance Ability Fair Device Used FWW M5 PT-IP Objective Assessments Start: 08/10/19 14:04 Freq: NEEDED Status: Active Protocol: Document 08/10/19 17:12 AW (Rec: 08/10/19 17:28 AW [email or web address]) Orientation Orientation/Cognition Level of Alertness Alert Orientation Name,Day of Week,Place, Situation Language Function Ability No Deficits Noted Memory Description No Deficits Noted Gross Range of Motion Upper Extremity ROM Assessment Left Impaired Impairments Left shoulder flexion limited ~120 degrees. Pt was planning on TSA before deciding to prioritize TKA. Lower Extremity ROM Assessment Left Impaired Strength Lower Extremity Strength Assessment Left Impaired Coordination Assessment Gross Coordination Gross Coordination WNL Sensation Assessment Sensation Gross Sensation WNL M6 PT-IP Treatment Start: 08/10/19 14:04 Freq: NEEDED Status: Active Protocol: Document 08/10/19 17:12 AW (Rec: 08/10/19 17:28 AW [email or web address]) Physical Therapy Treatment Exercises Exercises Ankle Pumps,Gluteal Sets,Quad Sets,Heel Slides Education Education Provided Precautions,Weight Bearing Status,Post-Op Packet,Safety Other Treatments Other Treatment Performed PT reviewed plan of care, post -op exercises, weightbearing status, and safe use of FWW. M7 PT-IP Assessment and Plan Start: 08/10/19 14:04 Freq: NEEDED Status: Active Protocol: Document 08/11/19 10:45 (Rec: 08/11/19 11:53 [email or web address]) PT Summary Assessment and Plan Potential Rehabilitation Potential Excellent Status of Condition at Evaluation Evolving Summary Impairments Pain,ROM,Strength,Bed Mobility ,Transfers,Gait,Activity Tolerance Assessment Summary Pt progress with PT today but slowly. She is relatively slow for all mobility due to pain. Pt cont needed min A for sit to stand and CGA for bed mob and gait training with FWW. She cont to have significant pain during WB and active knee flexion. She is also not safe to use 4WW /attempt stair climbing at this point. Recommended her to acquire FWW if possible. Educated pt and spouse to have PT treatment this afternoon to monitor her progress. Goals Bed Mobility Goal Standby Assistance Transfer Goal Standby Assistance,Front Wheeled Walker,Four Wheeled Walker Gait Goal Standby Assistance,Front Wheel Walker,Four Wheel Walker Gait Distance 150 Other Goals - up/down platform step with FWW SBA for safe entry to the home Days to Meet Goals 2 Frequency of Treatment Frequency Of Treatment Twice a Day Treatment Plan Physical Therapy Treatment Plan Bed Mobility Training,Transfer Training,Gait Training, Therapeutic Exercise,Balance Retraining,Post Op Education, Discharge Planning,Hot or Cold Pack,Neuromuscular Re-ed, Coordination Retraining,Manual Therapy Other Recommendations and Next Treatment assess gait, consider trial of Focus 4WW since that is pt's device of choice at home Recommendations To Nursing Amount of Assist Needed 1 Person Assist Discharge Recommendations PT Discharge Recommendations Home with Assistance, Outpatient PT Equipment Needed for Home Before may need FWW if unsafe with Discharge 4WW
--- NOTE | 2019-08-11 12:25 | PT.IPTN ---
Current Diagnoses Unilateral primary osteoarthritis, left knee (08/10/19) Surgery Performed Operation Date: 08/10/19 10:45 Actual Procedures p Total Knee Arthroplasty(Left) - Zach Kiser MD Physical Therapy Treatment Note M2 PT-IP Current Condition Start: 08/10/19 14:04 Freq: NEEDED Status: Active Protocol: Document 08/10/19 17:12 AW (Rec: 08/10/19 17:28 AW [email or web address]) Physical Therapy Current Condition Current Condition Evaluation Date 08/10/19 Treatment Diagnosis s/p L TKA, difficulty in walking Onset Date 08/10/19 Weight Bearing Status Weight Bearing Status Weight Bear as Tolerated M3 PT-IP Subjective Start: 08/10/19 14:04 Freq: NEEDED Status: Active Protocol: Document 08/11/19 10:45 HH (Rec: 08/11/19 11:53 HH [email or web address]) Subjective Physical Therapy Visit Type Type Treatment Note Visit Start Time 10:45 Visit Stop Time 11:05 Total Visit Minutes 20 Number of BEHAVIORAL HEALTH TECHNICIAN Visits 0 Physical Therapy Visit Comments Patient Comments Pt willing to work with PT and wanted to attempt using 4WW Therapy Pain Assessment Pain When Pain Assessed During Mobility Pain Present Pain Present Pain Reported Location Left Knee Intensity 6 Scale Used 4/10 at rest; 6/10 with mobility Pain Management Techniques Apply Cold,Re-positioning, Timing of Activity with Medications M4 PT-IP Mobility and Gait Start: 08/10/19 14:04 Freq: NEEDED Status: Active Protocol: Document 08/11/19 10:45 HH (Rec: 08/11/19 11:53 HH [email or web address]) PT-Bed Mobility Assessment Supine to Sit Supine to Sit Contact Guard Assistance Scooting Scooting to Edge of Bed Contact Guard Assistance PT-Transfer Assessment Sit to and From Stand Sit to and from Stand Minimal Assistance Equipment Transfer Assistive Device Gait Belt,Front Wheeled Walker Orthotic/Prosthetic Devices or Brace: No Transfers Transfer Destination Chair Transfer Technique Stand Step Pivot Transfer Ability Level of Assist Contact Guard Assistance Comments Mobility Comments Pt was in bed upon assessment with BP 140/73. She completed supine to long sit with using R bed rail to push off, and able to use R LE to unweight LLE to pivot towards her L EOB , but very slowly. Pt scooted towards EOB slowly afterwards. She then stood up with min A and staggered stance. Needed cues to place one UE on walker and bed. She then stood up with min A and performed lateral weight shift. Pt transfered herself back to chair with proper hand placement and slow descent but safely. Call light placed within reach. Gait Assessment Gait Gait Assistance Required: Contact Guard Assist Distance (Feet) 14 Able to Maintain Weight Bearing Status Yes During Gait Assistive Devices Assistive Device Gait Belt,Front Wheeled Walker Gait Deviations General Gait Pattern Antalgic,Decreased Stride Length,Decreased Feet Clearance,Step-to Gait Factors Limiting Gait Function Factors Limiting Gait Function Decreased Activity Tolerance, Decreased Strength,Limited Range of Motion,Pain Comments Gait Comments Pt amb from L side EOB towards room door and back to chair. Pt amb slowly with step to and antalgic gait. Pt primarily WB through B UEs and RLEs. However, both pt and her reports she was actually amb faster for her last R TKA. Stair Climbing Assessment Comments Stair Climbing Comments unable to assess PT-Balance Assessment Sitting Balance and Reactions Static Sitting Balance Ability Good Dynamic Sitting Balance Ability Good Standing Balance and Reactions Static Standing Balance Ability Good Dynamic Standing Balance Ability Fair Device Used FWW M5 PT-IP Objective Assessments Start: 08/10/19 14:04 Freq: NEEDED Status: Active Protocol: Document 08/10/19 17:12 AW (Rec: 08/10/19 17:28 AW [email or web address]) Orientation Orientation/Cognition Level of Alertness Alert Orientation Name,Day of Week,Place, Situation Language Function Ability No Deficits Noted Memory Description No Deficits Noted Gross Range of Motion Upper Extremity ROM Assessment Left Impaired Impairments Left shoulder flexion limited ~120 degrees. Pt was planning on TSA before deciding to prioritize TKA. Lower Extremity ROM Assessment Left Impaired Strength Lower Extremity Strength Assessment Left Impaired Coordination Assessment Gross Coordination Gross Coordination WNL Sensation Assessment Sensation Gross Sensation WNL M6 PT-IP Treatment Start: 08/10/19 14:04 Freq: NEEDED Status: Active Protocol: Document 08/10/19 17:12 AW (Rec: 08/10/19 17:28 AW [email or web address]) Physical Therapy Treatment Exercises Exercises Ankle Pumps,Gluteal Sets,Quad Sets,Heel Slides Education Education Provided Precautions,Weight Bearing Status,Post-Op Packet,Safety Other Treatments Other Treatment Performed PT reviewed plan of care, post -op exercises, weightbearing status, and safe use of FWW. M7 PT-IP Assessment and Plan Start: 08/10/19 14:04 Freq: NEEDED Status: Active Protocol: Document 08/11/19 10:45 HH (Rec: 08/11/19 11:53 [email or web address]) PT Summary Assessment and Plan Potential Rehabilitation Potential Excellent Status of Condition at Evaluation Evolving Summary Impairments Pain,ROM,Strength,Bed Mobility ,Transfers,Gait,Activity Tolerance Assessment Summary Pt progress with PT today but slowly. She is relatively slow for all mobility due to pain. Pt cont needed min A for sit to stand and CGA for bed mob and gait training with FWW. She cont to have significant pain during WB and active knee flexion. She is also not safe to use 4WW /attempt stair climbing at this point. Recommended her to acquire FWW if possible. Educated pt and spouse to have PT treatment this afternoon to monitor her progress. Also recommended KAYLA Shirley that pt might need HH depends on her 2nd tx this pm due to her slow rehab progress. Goals Bed Mobility Goal Standby Assistance Transfer Goal Standby Assistance,Front Wheeled Walker,Four Wheeled Walker Gait Goal Standby Assistance,Front Wheel Walker,Four Wheel Walker Gait Distance 150 Other Goals - up/down platform step with FWW SBA for safe entry to the home Days to Meet Goals 2 Frequency of Treatment Frequency Of Treatment Twice a Day Treatment Plan Physical Therapy Treatment Plan Bed Mobility Training,Transfer Training,Gait Training, Therapeutic Exercise,Balance Retraining,Post Op Education, Discharge Planning,Hot or Cold Pack,Neuromuscular Re-ed, Coordination Retraining,Manual Therapy Other Recommendations and Next Treatment assess gait, consider trial of Focus 4WW since that is pt's device of choice at home Recommendations To Nursing Amount of Assist Needed 1 Person Assist Discharge Recommendations PT Discharge Recommendations Home with Assistance,Home Health,Outpatient PT Equipment Needed for Home Before may need FWW if unsafe with Discharge 4WW
[2019-08-11] MEDS: ESCITALOPRAM 10 MG TABLET 20 MG PO (14:35)
--- NOTE | 2019-08-11 14:41 | CM.DANOTE ---
Patient is a 79 year old female who was admitted on 08/10/19 for Left TKA. Pt has [facility] and [employer] for insurance and her PCP is Dr. Lisette Sanders. EMR was reviewed. Per Ortho MD, pt likely medically stable to d/c home tonight after further PT eval and recommendations. Per PT, after initial assessment recommending safe d/c home with HH. SW called Dr. Kiser office and spoke to his RN and confirmed Dr. Kiser agreeable with HH. SW met bedside with pt and spouse and explained role and updated white board and they confirm that they live at home in [facility] and pt is independent with ADL's at baseline. Pt has a hx of Right TKA a couple years ago and was able to d/c home without needs. SW discussed HH recommendation and provided information on HH services and frequency and pt and spouse feel HH needed prior to pt being able to safely attend outpt PT. SW provided the HH Choice List and no preference so SW made referral [facility] based on Vendor Calendar and circled [facility] info on the Choice List for the pt and spouse to have at d/c. SW called [facility] and made new referral and they can open pt to service next day and CC Keke kindly faxed clinicals, F2F and MD orders to [facility] to review. Plan: SW to follow closely after 2nd PT assess this afternoon to determine if pt safe for d/c home with new [facility] this evening vs the morning. CHARLES Madrigal Discharge Planning/Care Management Advanced directive, confirm from FAMILY Start: 08/10/19 16:18 Freq: Q24H Status: Active Protocol: Document 08/10/19 16:18 VERNON (Rec: 08/10/19 16:25 VERNON [email or web address]) Advance Directive, confirm on record Time 16:24 Person contacted Copy received No CM Discharge Assessment Start: 08/11/19 14:40 Freq: Status: Active Protocol: Document 08/11/19 14:40 BF (Rec: 08/11/19 14:41 BF [id number]) Discharge Planning Assessment Assigned Patient Case Manager CHARLES Watson DPOA/Assigned Designee Name spouse Advance Directives? Yes Advance Directives on File No History Provided By Patient,Significant Other, Medical Record Has Patient been admitted in last 30 No days? Prior Living Arrangements House Household Members spouse Type of transporation used prior to Relies on Others admit Independent with ADL's Yes Is patient alert and oriented? Yes Caregiver for Another No Community Services used prior to Physical Therapy admission: Patient/Family Preference Home with Home Health Barriers to Discharge No Discharge Plan Home with Home Health Transportation Arrangement Family to provide transport home. Referrals Initiated Home Health If patient plan is home with home health Yes : Has signed face to face form been completed? Medicare Choice List Provided Yes SNF/HH Preference no preference, [facility] based on Vendor Calendar Has Agency SNF been contacted Yes Whiteboard Updated in Patient Room with Yes name and ext. # of Patient Case Manager Review Status In Process Please Provide Date Initial DC 08/11/19 Assessment Was Performed Next Review Type Continued Stay Review Pre-Anesthesia Assessment Start: 07/27/19 09:48 Freq: Status: Complete Protocol: Document 07/27/19 09:48 [facility] (Rec: 07/27/19 10:03 [facility] [email or web address]) Pre-Anesthesia Assessment Preferred Name Sandy Patient Information Reviewed Via Phone Assessment Assessment Completed With Patient Diagnostic Results BMP/CMP,CBC,EKG,Urinalysis Comment Labs/EKG @ 03/11/19 Primary Care Provider Lisette Sanders Seen Specialist in Last 12 Months Yes Specialist Seen Orthopedist Primary Language Argentine Preferred Language Argentine Semiconductor Engineer Required No Height 162.56 cm Weight 75.75 kg Body Mass Index (BMI) 28.6 Hearing Ability Normal Visual Impairment No Limitations Visual Assist None Dentition Type Teeth, Natural Present Barriers to Learning Memory Other Aids No Hx Anesthesia Reactions No Hx Family Anesthesia Reaction No Hx Malignant Hyperthermia No Hx Blood Transfusions No Anesthesia Review Requested No alcohol intake current alcohol intake frequency 0-2 drinks per day Smoking Status Former smoker how long ago did patient quit smoking Quit Substance Use Type does not use Pain Present Pain Reported Musculoskeletal Symptoms Abnormal Gait,Difficulty Walking,Joint Pain,Limited Range of Motion,Muscle Cramps History of Falling (Recent or History of Yes ) Patient is completely paralyzed or No completely immobile Mental Status Oriented to own ability Is patient on oxygen? No Does patient have CATES/SOB No Hx Sleep Apnea No Currently Taking a Beta [place] Yes: Atenolol Can You Climb a Flight of Stairs Without No SOB Hx Chest Pain No Hx SOB No Hx Syncope or Dizziness No Anti-Coagulant Therapy No Has a Catering Chef No Cardiac Testing No Hx Pacemaker/ICD No Pacemaker Rep Required? No Cardiac Clearance Received Not Applicable Diet Type At Home Regular dysphagia No Bladder Pattern Incontinent,Urgency Urinary Catheter Present No Hx Urinary Self Catheterization No Diabetes No Patient No Lactating No Hx Drug Resistant Organism No Presence of External or Internal Medical Yes: Right knee prosthesis Devices Have you traveled outside the [facility] in the last 30 days? Marital Status Lives With spouse Prior Living Arrangements House Support System Child/Children,Spouse Does the Patient Have Assistance After Yes Surgery Patient Discharge Plan Description Return Home Comment Pt advised 1-2 night length of stay per surgeon Feels Safe in Current Environment Yes Been Physically Hurt or Threatened By a No Person in Current Environment Do you have thoughts of harming yourself None or others? Are you currently considering suicide? No Do you have a plan to hurt yourself or No Plan others? Do You Have Any Spiritual Beliefs That No May Affect Your HC Choices? Do You Have Any Cultural Practices That No May Affect Your HC Choices? Spiritual Referral None Comment Caodaism Who Can We Speak to About Patient's Care Family, friends Identifying Code for Release of Patient Declines to issue Information Health Care Proxy/Next of Kin Jong () Health Care Proxy Emergency Contact Name Letha (daughter) Emergency Contact Advance Directives? Yes Advance Directives on File No Power of Nylon Machine Operator Yes Power of Nylon Machine Operator Name John (daughters) Power of Nylon Machine Operator Phone Number Letha: [phone] Amanda: [phone] PAC Instructions Do not shave/clip surgical site,Durable medical equipment ,Medications to take/avoid, Nasal antibiotic,No ETOH/ petroleum product on skin DOS, NPO,Post-op transportation,Pre -surgical wash,Sturdy shoes/ comfortable clothes,Do not bring valuables and remove jewelry
--- NOTE | 2019-08-11 14:42 | PT.IPTN ---
Current Diagnoses Unilateral primary osteoarthritis, left knee (08/10/19) Surgery Performed Operation Date: 08/10/19 10:45 Actual Procedures p Total Knee Arthroplasty(Left) - Zach Kiser MD Physical Therapy Treatment Note M2 PT-IP Current Condition Start: 08/10/19 14:04 Freq: NEEDED Status: Active Protocol: Document 08/10/19 17:12 AW (Rec: 08/10/19 17:28 AW [id number]) Physical Therapy Current Condition Current Condition Evaluation Date 08/10/19 Treatment Diagnosis s/p L TKA, difficulty in walking Onset Date 08/10/19 Weight Bearing Status Weight Bearing Status Weight Bear as Tolerated M3 PT-IP Subjective Start: 08/10/19 14:04 Freq: NEEDED Status: Active Protocol: Document 08/11/19 14:12 SP (Rec: 08/11/19 15:12 SP [id number]) Subjective Physical Therapy Visit Type Type Treatment Note Visit Start Time 14:12 Visit Stop Time 14:42 Total Visit Minutes 30 Number of GRAPHOTYPE OPERATOR Visits 1 Physical Therapy Visit Comments Patient Comments Pt willing to work with PT and trial step mgt with FWW. Patient Goals Pt hopes to return home with spouse. Therapy Pain Assessment Pain When Pain Assessed During Mobility Pain Present Pain Present Pain Reported Location Left Knee Intensity 7 Scale Used 3/10 at rest, 7/10 with mobility Pain Management Techniques Apply Cold,Re-positioning, Timing of Activity with Medications M4 PT-IP Mobility and Gait Start: 08/10/19 14:04 Freq: NEEDED Status: Active Protocol: Document 08/11/19 14:12 SP (Rec: 08/11/19 15:12 SP [id number]) PT-Bed Mobility Assessment Sit to Supine Sit to Supine Contact Guard Assistance Scooting Scooting to Edge of Bed Standby Assistance PT-Transfer Assessment Sit to and From Stand Sit to and from Stand Contact Guard Assistance, Minimal Assistance,Use of Upper Extremities Equipment Transfer Assistive Device Gait Belt,Front Wheeled Walker Orthotic/Prosthetic Devices or Brace: No Transfers Transfer Destination Bed,Wheelchair Transfer Technique Pt ambulate with FWW and Step pivot Transfer Ability Level of Assist Contact Guard Assistance,Use of Upper Extremities Comments Mobility Comments Pt was up in chair when arrived, in room. Pt and complete wound care technician training including BM, transfers, gait and stair mgt with cuing for providign support with safety using was able to properly don gait belt . Pt stated lower level pain, just took a med for pain control and ice donned. Pt was able to complete sit to stand from chair initially requiring Min A then rest of transfers CGA with use of FWW and cuing for BUE pushing up from chair arms and full upright posture once standing to decrease LB flexed posture. Pt required cuing for reaching back prior to sitting for safety and slow controlled descent with fair demonstration. Pt was able to scoot up EOB once sitting then complete sitting to supine with education on using RLE supporting LLE or gait belt on L foot to help lift into bed with CGA and cuing for positioning for success. Pt was able to perform bridging usign RLE to repositioning herself in bed. Pt reported increase pain to 7/10 pain L knee during mobility. Gait Assessment Gait Gait Assistance Required: Contact Guard Assist Distance (Feet) 75 Able to Maintain Weight Bearing Status Yes During Gait Assistive Devices Assistive Device Gait Belt,Front Wheeled Walker Gait Deviations General Gait Pattern Antalgic,Decreased Stride Length,Decreased Feet Clearance,Flexed Trunk,Narrow Based Gait,Step-to Gait Factors Limiting Gait Function Factors Limiting Gait Function Decreased Activity Tolerance, Decreased Strength,Limited Range of Motion,Pain,Poor Balance,Poor Safety Awareness Comments Gait Comments Pt was able to tolerate increased distance during ambulation 75 ft this afternoon with CGA using FWW chair in room to down hallway before required sit in w/c while completing caregiver training providing cGA and cuing to patient for upright posture. Therapist cued for proper stance phases: knee flexion, heel toe gait to work toward normalizing gait pattern. Initially patient demonstrated step to gait then progressed step over step as distanced progressed. Stair Climbing Assessment Evaluation Level of Assist On Stairs Minimal Assistance,1 Person Assistance Devices Stair Climbing Assistive Devices Front Wheel Walker Technique/Endurance Stair Climbing Direction Ascend and Descend Stair Climbing Technique Step to Step Number of Steps Climbed 1 Stair Climbing Set # Repetitions (reps) 1 Comments Stair Climbing Comments Pt was able to complete stair mgt with and therapist Min A - CGA x1 usign FWW 1 step to patterning with cuing for planning LE and fWW positioning. No LOB and good L knee stability during RLE transitioning while using BUE on FWW for support. PT-Balance Assessment Sitting Balance and Reactions Static Sitting Balance Ability Good Dynamic Sitting Balance Ability Good Standing Balance and Reactions Static Standing Balance Ability Good Dynamic Standing Balance Ability Fair Device Used FWW M5 PT-IP Objective Assessments Start: 08/10/19 14:04 Freq: NEEDED Status: Active Protocol: Document 08/10/19 17:12 AW (Rec: 08/10/19 17:28 AW [email or web address]) Orientation Orientation/Cognition Level of Alertness Alert Orientation Name,Day of Week,Place, Situation Language Function Ability No Deficits Noted Memory Description No Deficits Noted Gross Range of Motion Upper Extremity ROM Assessment Left Impaired Impairments Left shoulder flexion limited ~120 degrees. Pt was planning on TSA before deciding to prioritize TKA. Lower Extremity ROM Assessment Left Impaired Strength Lower Extremity Strength Assessment Left Impaired Coordination Assessment Gross Coordination Gross Coordination WNL Sensation Assessment Sensation Gross Sensation WNL M6 PT-IP Treatment Start: 08/10/19 14:04 Freq: NEEDED Status: Active Protocol: Document 08/11/19 14:12 SP (Rec: 08/11/19 15:12 SP [id number]) Physical Therapy Treatment Exercises Exercises Ankle Pumps,Gluteal Sets,Quad Sets,Heel Slides,Seated Knee Flexion/Extension Education Education Provided Precautions,Weight Bearing Status,Safety Other Treatments Other Treatment Performed Next tx assess 4WW use has at home. Trial 1 step mgt again for CGA and proper sequencing with decreased cues. M7 PT-IP Assessment and Plan Start: 08/10/19 14:04 Freq: NEEDED Status: Active Protocol: Document 08/11/19 14:12 SP (Rec: 08/11/19 15:12 SP [id number]) PT Summary Assessment and Plan Potential Rehabilitation Potential Excellent Status of Condition at Evaluation Evolving Summary Impairments Pain,ROM,Strength,Bed Mobility ,Transfers,Gait,Activity Tolerance Assessment Summary See mobility comments. Pt required CGA-Min A for all mobility. Complete caregiver training with including BM, transfer, gait, stair mgt using FWW.Next tx assess 4WW and steps again for proper sequencing with decreased cuing. Cuing required for upright posture and L knee flexion heel toe for improved normal gait. Pt was laying in bed with all needs and bed alarm armed when left. Goals Bed Mobility Goal Standby Assistance Transfer Goal Standby Assistance,Front Wheeled Walker,Four Wheeled Walker Gait Goal Standby Assistance,Front Wheel Walker,Four Wheel Walker Gait Distance 150 Other Goals - up/down platform step with FWW SBA for safe entry to the home Days to Meet Goals 2 Frequency of Treatment Frequency Of Treatment Twice a Day Treatment Plan Physical Therapy Treatment Plan Bed Mobility Training,Transfer Training,Gait Training, Therapeutic Exercise,Balance Retraining,Post Op Education, Discharge Planning,Hot or Cold Pack,Neuromuscular Re-ed, Coordination Retraining,Manual Therapy Other Recommendations and Next Treatment 4WW use, step mgt again with Focus decrease assist CGA- SBA. Recommendations To Nursing Amount of Assist Needed 1 Person Assist Discharge Recommendations PT Discharge Recommendations Home with Assistance,Home Health,Outpatient PT Equipment Needed for Home Before may need FWW if unsafe with Discharge 4WW
[2019-08-11] MEDS: OXYCODONE IR 5 MG TABLET PO (19:59)
[2019-08-11] MEDS: NORTRIPTYLINE 10 MG CAPSULE 30 MG PO (20:00)
[2019-08-11] MEDS: AMLODIPINE 5 MG TABLET 10 MG PO (20:00)
--- NOTE | 2019-08-11 22:27 | PC.NURSE ---
SHIFT Report received, care assumed 1530. A&Ox3, VSS. Reports low to moderate pain throughout shift; relieved with oxycodone, ice. No post-op BM, though positive bowel tones and flatus. Declines laxative. Up to bathroom throughout shift with walker and 1-person assist.
[2019-08-12] MEDS: OXYCODONE IR 10 MG TABLET PO ×2 (04:19→09:17)
[2019-08-12 04:38] VITALS: BP 127/80; PULSE 68; RESP 17; TEMP 36.2; O2SAT 97
--- NOTE | 2019-08-12 06:13 | PC.NURSE ---
Pt noted to have only voided 100 mL this shift. Previous shift appears to have documented only unmeasured voids. Bladder scan for 600 mL - Dr. Kiser made aware, orders to straight cath if unable to void. Pt disagreeable to catheter, after multiple attempts was finally able to void 300 mL. No other acute overnight events. Pain has been controlled with PO meds. Tolerating general diet. She was up at start of shift ambulating in the stephen briefly with one person assist using FWW.
[2019-08-12] MEDS: ACETAMINOPHEN 325 MG TABLET 650 MG PO (09:09)
[2019-08-12] MEDS: ASPIRIN EC 81 MG TABLET PO (09:11)
[2019-08-12] MEDS: ESCITALOPRAM 10 MG TABLET 20 MG PO (09:11)
[2019-08-12] MEDS: DOCUSATE 100 MG CAPSULE PO (09:11)
[2019-08-12] MEDS: ATENOLOL 25 MG TABLET PO (09:11)
[2019-08-12 09:48] VITALS: BP 120/59; PULSE 73; RESP 16; TEMP 36.3; O2SAT 97
--- NOTE | 2019-08-12 10:57 | PM.DS.1 ---
History of Present Illness History of Present Illness Date Patient Seen: 08/12/19 Time Patient Seen: 10:57 Chief complaint: [id number] Left Total Knee Arthroplasty Narrative: Hospital day 3, postop day 2 following left total knee arthroplasty by Dr. Kiser. Patient has remained stable postoperatively. She did have urine retention last night but eventually voided 300 cc. She has progressed slowly with physical therapy and [facility] been [facility]. She is scheduled go to [facility] for outpatient therapy. Patient and her feel comfortable with her going home today. Discharge Providers Provider Date of admission: 08/10/19 08:24 Discharge Date: 08/12/19 Primary care physician: Lisette Sanders MD Consults: 08/10/19 13:27 Consult to Discharge Planning Routine Comment: Consult to Physical Therapy Evaluate & Treat Comment: Physician Instructions: postop TKA protocol 08/11/19 14:52 Consult to Home Health Routine Comment: Left TKA Reason For Exam: Set up PT/OT for discharge home 08/12/19 Discharge provider: Kj Dupree PA-C Summary Hospital Course Discharge Diagnosis: Status post left total knee arthroplasty Hospital Course: Patient brought to hospital on 08/10/19 4 above-noted surgery. She remained stable with postop. Progressed somewhat slowly with therapy. Referral done [facility]. Patient feels she is ready to go home on postop day 2. Status at Discharge Cognitive/behavioral status at discharge: oriented Functional status at discharge: uses cane/walker Overall status at discharge: patient is progressing back to baseline Time Spent with Patient Time spent: Less than 30 minutes Exam Vital Signs (past 8 hours): - 08/12/19 04:38 08/12/19 09:48 Temperature 97.2 F L 97.3 F L Pulse Rate 68 73 Respiratory Rate 17 16 Blood Pressure 127/80 120/59 L Pulse Oximetry 97 97 Oxygen Delivery Method Room Air Oxygen Flow Rate 0 Narrative Exam Narrative: Alert, oriented no acute distress sitting in chair. Legs. Cornelio wrap an Aquacel dressing to left knee is dry without drainage or inflammation. Mild swelling. No calf pain or swelling. Pulses symmetrical. Objective Labs Result Diagrams: 08/11/19 04:42 Discharge Plan Discharge Plan Patient Disposition: Home Discharge orders & Medications Prescriptions: New acetaminophen 325 mg Tablet 650 mg PO TID 30 Days Qty: 180 RF: 0 aspirin 81 mg Tablet,Delayed Release (Dr/Ec) 81 mg PO BID 42 Days Qty: 84 RF: 0 oxycodone 5 mg Tablet 5 mg PO Q3HR PRN (Reason: Pain, Moderate (4-6)) Qty: 40 RF: 0 Continued lisinopril 20 mg Tablet 20 mg PO DAILY RF: 0 atenolol 25 mg Tablet 25 mg PO DAILY RF: 0 amlodipine 5 mg Tablet 10 mg PO BEDTIME RF: 0 nortriptyline 10 mg Capsule 30 mg PO BEDTIME RF: 0 escitalopram oxalate 20 mg Tablet 20 mg PO DAILY RF: 0 naproxen sodium [Aleve] 220 mg Capsule 440 mg PO BID PRN (Reason: Pain) RF: 0 Follow up/Referrals: Lisette Sanders MD [Primary Care Provider] - Zach Kiser MD [Physician] - 3-5 Days Discharge Health Status Multidrug resistant organism: No MDRO Diet/Activity/Treatments Diet: Diet as Tolerated and Regular Activity: You may bear weight as tolerated on your left leg. Use walker as needed. Cold/Heat Therapy: Apply ice for 15 minutes of every hour as needed to the left knee for pain control. Skin/Wound/Dressing Care Report to your healthcare provider any signs of infection, such as:: chills, fever, night sweats, increased pain, unusual drainage and unusual redness Dressing: Remove the Cornelio wrap 3 days after surgery. You may then shower normally with the deeper dressing in place. Leave the deeper dressing in place until follow-up. If the center strip of the deep dressing becomes saturated with either water or blood, please call the office. Visit Report/Discharge Packet Instructions: DI for Knee Replacement Stand Alone Forms: Surgery Discharge Visit Report Forms: Patient Portal/API, Stroke Signs & Symptoms Discharge Data Primary Care Provider: Lisette Sanders
--- NOTE | 2019-08-12 11:02 | PT.IPTN ---
Addendum entered and electronically signed by Patricia Bagley, MAYO 08/12/19 13:57: Pt was laying in bed with all needs in reach, in room when left. Pt is safe to go home with to assist her and outpatient PT when medically stable. Original Note: Current Diagnoses Unilateral primary osteoarthritis, left knee (08/10/19) Surgery Performed Operation Date: 08/10/19 10:45 Actual Procedures p Total Knee Arthroplasty(Left) - Zach Kiser MD Physical Therapy Treatment Note M2 PT-IP Current Condition Start: 08/10/19 14:04 Freq: NEEDED Status: Discharge Protocol: Document 08/10/19 17:12 AW (Rec: 08/10/19 17:28 AW [id number]) Physical Therapy Current Condition Current Condition Evaluation Date 08/10/19 Treatment Diagnosis s/p L TKA, difficulty in walking Onset Date 08/10/19 Weight Bearing Status Weight Bearing Status Weight Bear as Tolerated M3 PT-IP Subjective Start: 08/10/19 14:04 Freq: NEEDED Status: Discharge Protocol: Document 08/12/19 11:04 SP (Rec: 08/12/19 13:48 SP [id number]) Subjective Physical Therapy Visit Type Type Treatment Note Visit Start Time 10:24 Visit Stop Time 1102 Total Visit Minutes 38 Number of AGRICULTURAL COMMODITIES GRADER Visits 2 Physical Therapy Visit Comments Patient Comments Pt willing to work with PT today. present in room for further caregiver training. Patient Goals Pt plans to go home with spouse. Therapy Pain Assessment Pain When Pain Assessed During Mobility Pain Present Pain Present Pain Reported Location Left Knee Intensity 3 Scale Used 0/10 at rest, 3/10 with mobility Pain Management Techniques Apply Cold,Re-positioning, Timing of Activity with Medications M4 PT-IP Mobility and Gait Start: 08/10/19 14:04 Freq: NEEDED Status: Discharge Protocol: Document 08/12/19 11:04 SP (Rec: 08/12/19 13:48 SP [id number]) PT-Bed Mobility Assessment Sit to Supine Sit to Supine Contact Guard Assistance, Bedrails PT-Transfer Assessment Sit to and From Stand Sit to and from Stand Standby Assistance,Contact Guard Assistance,1 Person Assistance,Use of Upper Extremities Equipment Transfer Assistive Device Gait Belt,Front Wheeled Walker Orthotic/Prosthetic Devices or Brace: No Transfers Transfer Destination Bed,Wheelchair Transfer Technique Pt ambulate with FWW and Step pivot Transfer Ability Level of Assist Standby Assistance,Contact Guard Assistance,Use of Upper Extremities Comments Mobility Comments Pt was sitting in chair when arrived with in room. Pt and complete caregiver training including: donning gait belt for safety, BM sitting>supine(education on use of gait belt on LLE to get into bed), CGA, transfer sit to stand with cues for proper hand placement push up from chair and reaching back for w/c or bed for safety descent and upright posture. Pt and worked well together no concerns. Gait Assessment Gait Gait Assistance Required: Standby Assistance,Contact Guard Assist,1 Person Assist Distance (Feet) 100 Able to Maintain Weight Bearing Status Yes During Gait Assistive Devices Assistive Device Gait Belt,Front Wheeled Walker Orthotic/Prosthetic Devices or Brace: No Gait Deviations General Gait Pattern Antalgic,Decreased Stride Length,Decreased Feet Clearance,Flexed Trunk,Narrow Based Gait,Step-to Gait Factors Limiting Gait Function Factors Limiting Gait Function Decreased Activity Tolerance, Decreased Strength,Limited Range of Motion,Pain,Poor Balance,Poor Safety Awareness Comments Gait Comments Pt was able to tolerate further distance ambulation today with decreased pain usign FWW SBA- CGA and ocasion cues for body closer to FWW during turns. Pt and complete caregiver training with good cuing for proper knee flexion and heel toe gait improved step over step as distance progressed. Stair Climbing Assessment Evaluation Level of Assist On Stairs Contact Guard Assistance,1 Person Assistance Devices Stair Climbing Assistive Devices Front Wheel Walker Technique/Endurance Stair Climbing Direction Ascend and Descend Stair Climbing Technique Step to Step Number of Steps Climbed 1 Stair Climbing Set # Repetitions (reps) 2 Comments Stair Climbing Comments Pt and complete caregiver training including step to gait up 1 step x2 sets CGA with Min cuing from for proper sequencing unvolved ascend leading and involved lead descending. No LOB, stable and safe. PT-Balance Assessment Sitting Balance and Reactions Static Sitting Balance Ability Good Dynamic Sitting Balance Ability Good Standing Balance and Reactions Static Standing Balance Ability Good Dynamic Standing Balance Ability Good Device Used FWW M5 PT-IP Objective Assessments Start: 08/10/19 14:04 Freq: NEEDED Status: Discharge Protocol: Document 08/10/19 17:12 AW (Rec: 08/10/19 17:28 AW [email or web address]) Orientation Orientation/Cognition Level of Alertness Alert Orientation Name,Day of Week,Place, Situation Language Function Ability No Deficits Noted Memory Description No Deficits Noted Gross Range of Motion Upper Extremity ROM Assessment Left Impaired Impairments Left shoulder flexion limited ~120 degrees. Pt was planning on TSA before deciding to prioritize TKA. Lower Extremity ROM Assessment Left Impaired Strength Lower Extremity Strength Assessment Left Impaired Coordination Assessment Gross Coordination Gross Coordination WNL Sensation Assessment Sensation Gross Sensation WNL M6 PT-IP Treatment Start: 08/10/19 14:04 Freq: NEEDED Status: Discharge Protocol: Document 08/12/19 11:04 SP (Rec: 08/12/19 13:48 SP [id number]) Physical Therapy Treatment Education Education Provided Precautions,Weight Bearing Status,Safety Other Treatments Other Treatment Performed Pt stated will be using FWW at this time and will have outpatient review 4 WW later, did not assess due to WB through BUE during LLe advancement for safety. M7 PT-IP Assessment and Plan Start: 08/10/19 14:04 Freq: NEEDED Status: Discharge Protocol: Document 08/12/19 11:04 SP (Rec: 08/12/19 13:48 SP [id number]) PT Summary Assessment and Plan Potential Rehabilitation Potential Excellent Status of Condition at Evaluation Evolving Summary Impairments Pain,ROM,Strength,Bed Mobility ,Transfers,Gait,Activity Tolerance Assessment Summary See mobility comments. Pt over all SBA- CGA for all mobility CGA on stairs using FWW and cuing for sequencing and safety and ease for transition standing with BUE hand placement. Goals Bed Mobility Goal Standby Assistance Transfer Goal Standby Assistance,Front Wheeled Walker,Four Wheeled Walker Gait Goal Standby Assistance,Front Wheel Walker,Four Wheel Walker Gait Distance 150 Other Goals - up/down platform step with FWW SBA for safe entry to the home Days to Meet Goals 2 Frequency of Treatment Frequency Of Treatment Twice a Day Treatment Plan Physical Therapy Treatment Plan Bed Mobility Training,Transfer Training,Gait Training, Therapeutic Exercise,Balance Retraining,Post Op Education, Discharge Planning,Hot or Cold Pack,Neuromuscular Re-ed, Coordination Retraining,Manual Therapy Other Recommendations and Next Treatment 4WW use, step mgt again with Focus decrease assist CGA- SBA. Recommendations To Nursing Amount of Assist Needed 1 Person Assist Discharge Recommendations PT Discharge Recommendations Home with Assistance,Home Health,Outpatient PT Equipment Needed for Home Before Use her FWW if unsafe with 4WW Discharge
--- NOTE | 2019-08-12 11:02 | PT.IPTN ---
Current Diagnoses Unilateral primary osteoarthritis, left knee (08/10/19) Surgery Performed Operation Date: 08/10/19 10:45 Actual Procedures p Total Knee Arthroplasty(Left) - Zach Kiser MD Physical Therapy Treatment Note M2 PT-IP Current Condition Start: 08/10/19 14:04 Freq: NEEDED Status: Discharge Protocol: Document 08/10/19 17:12 AW (Rec: 08/10/19 17:28 AW [id number]) Physical Therapy Current Condition Current Condition Evaluation Date 08/10/19 Treatment Diagnosis s/p L TKA, difficulty in walking Onset Date 08/10/19 Weight Bearing Status Weight Bearing Status Weight Bear as Tolerated M3 PT-IP Subjective Start: 08/10/19 14:04 Freq: NEEDED Status: Discharge Protocol: Document 08/12/19 11:04 SP (Rec: 08/12/19 13:48 SP [id number]) Subjective Physical Therapy Visit Type Type Treatment Note Visit Start Time 10:24 Visit Stop Time 11:02 Total Visit Minutes 38 Number of [employer] Visits 2 Physical Therapy Visit Comments Patient Comments Pt willing to work with PT today. present in room for further caregiver training. Patient Goals Pt plans to go home with spouse. Therapy Pain Assessment Pain When Pain Assessed During Mobility Pain Present Pain Present Pain Reported Location Left Knee Intensity 3 Scale Used 0/10 at rest, 3/10 with mobility Pain Management Techniques Apply Cold,Re-positioning, Timing of Activity with Medications M4 PT-IP Mobility and Gait Start: 08/10/19 14:04 Freq: NEEDED Status: Discharge Protocol: Document 08/12/19 11:04 SP (Rec: 08/12/19 13:48 SP [id number]) PT-Bed Mobility Assessment Sit to Supine Sit to Supine Contact Guard Assistance, Bedrails PT-Transfer Assessment Sit to and From Stand Sit to and from Stand Standby Assistance,Contact Guard Assistance,1 Person Assistance,Use of Upper Extremities Equipment Transfer Assistive Device Gait Belt,Front Wheeled Walker Orthotic/Prosthetic Devices or Brace: No Transfers Transfer Destination Bed,Wheelchair Transfer Technique Pt ambulate with FWW and Step pivot Transfer Ability Level of Assist Standby Assistance,Contact Guard Assistance,Use of Upper Extremities Comments Mobility Comments Pt was sitting in chair when arrived with in room. Pt and complete caregiver training including: donning gait belt for safety, BM sitting>supine(education on use of gait belt on LLE to get into bed), CGA, transfer sit to stand with cues for proper hand placement push up from chair and reaching back for w/c or bed for safety descent and upright posture. Pt and worked well together no concerns. Gait Assessment Gait Gait Assistance Required: Standby Assistance,Contact Guard Assist,1 Person Assist Distance (Feet) 100 Able to Maintain Weight Bearing Status Yes During Gait Assistive Devices Assistive Device Gait Belt,Front Wheeled Walker Orthotic/Prosthetic Devices or Brace: No Gait Deviations General Gait Pattern Antalgic,Decreased Stride Length,Decreased Feet Clearance,Flexed Trunk,Narrow Based Gait,Step-to Gait Factors Limiting Gait Function Factors Limiting Gait Function Decreased Activity Tolerance, Decreased Strength,Limited Range of Motion,Pain,Poor Balance,Poor Safety Awareness Comments Gait Comments Pt was able to tolerate further distance ambulation today with decreased pain usign FWW SBA- CGA and ocasion cues for body closer to FWW during turns. Pt and complete caregiver training with good cuing for proper knee flexion and heel toe gait improved step over step as distance progressed. Stair Climbing Assessment Evaluation Level of Assist On Stairs Contact Guard Assistance,1 Person Assistance Devices Stair Climbing Assistive Devices Front Wheel Walker Technique/Endurance Stair Climbing Direction Ascend and Descend Stair Climbing Technique Step to Step Number of Steps Climbed 1 Stair Climbing Set # Repetitions (reps) 2 Comments Stair Climbing Comments Pt and complete caregiver training including step to gait up 1 step x2 sets CGA with Min cuing from for proper sequencing unvolved ascend leading and involved lead descending. No LOB, stable and safe. PT-Balance Assessment Sitting Balance and Reactions Static Sitting Balance Ability Good Dynamic Sitting Balance Ability Good Standing Balance and Reactions Static Standing Balance Ability Good Dynamic Standing Balance Ability Good Device Used FWW M5 PT-IP Objective Assessments Start: 08/10/19 14:04 Freq: NEEDED Status: Discharge Protocol: Document 08/10/19 17:12 AW (Rec: 08/10/19 17:28 AW [email or web address]) Orientation Orientation/Cognition Level of Alertness Alert Orientation Name,Day of Week,Place, Situation Language Function Ability No Deficits Noted Memory Description No Deficits Noted Gross Range of Motion Upper Extremity ROM Assessment Left Impaired Impairments Left shoulder flexion limited ~120 degrees. Pt was planning on TSA before deciding to prioritize TKA. Lower Extremity ROM Assessment Left Impaired Strength Lower Extremity Strength Assessment Left Impaired Coordination Assessment Gross Coordination Gross Coordination WNL Sensation Assessment Sensation Gross Sensation WNL M6 PT-IP Treatment Start: 08/10/19 14:04 Freq: NEEDED Status: Discharge Protocol: Document 08/12/19 11:04 SP (Rec: 08/12/19 13:48 SP [id number]) Physical Therapy Treatment Education Education Provided Precautions,Weight Bearing Status,Safety Other Treatments Other Treatment Performed Pt stated will be using FWW at this time and will have outpatient review 4 WW later, did not assess due to WB through BUE during LLe advancement for safety. M7 PT-IP Assessment and Plan Start: 08/10/19 14:04 Freq: NEEDED Status: Discharge Protocol: Document 08/12/19 11:04 SP (Rec: 08/12/19 13:48 SP [id number]) PT Summary Assessment and Plan Potential Rehabilitation Potential Excellent Status of Condition at Evaluation Evolving Summary Impairments Pain,ROM,Strength,Bed Mobility ,Transfers,Gait,Activity Tolerance Assessment Summary See mobility comments. Pt over all SBA- CGA for all mobility CGA on stairs using FWW and cuing for sequencing and safety and ease for transition standing with BUE hand placement. Goals Bed Mobility Goal Standby Assistance Transfer Goal Standby Assistance,Front Wheeled Walker,Four Wheeled Walker Gait Goal Standby Assistance,Front Wheel Walker,Four Wheel Walker Gait Distance 150 Other Goals - up/down platform step with FWW SBA for safe entry to the home Days to Meet Goals 2 Frequency of Treatment Frequency Of Treatment Twice a Day Treatment Plan Physical Therapy Treatment Plan Bed Mobility Training,Transfer Training,Gait Training, Therapeutic Exercise,Balance Retraining,Post Op Education, Discharge Planning,Hot or Cold Pack,Neuromuscular Re-ed, Coordination Retraining,Manual Therapy Other Recommendations and Next Treatment 4WW use, step mgt again with Focus decrease assist CGA- SBA. Recommendations To Nursing Amount of Assist Needed 1 Person Assist Discharge Recommendations PT Discharge Recommendations Home with Assistance,Home Health,Outpatient PT Equipment Needed for Home Before Use her FWW if unsafe with 4WW Discharge
--- NOTE | 2019-08-12 12:31 | PC.NURSE ---
Pt is dressed and ready for discharge home with Spouse. HL removed. Went over d/c instructions with Pt and Spouse-discussed d/c meds, time of last dose, reviewed stroke education, signs and symptoms of infection, dressing, encouraged fluid intake to prevent constipation or dehydration, no driving while on pain meds. Pt denies further questions and was taken out to POV via w/c by LOAD [employer]NER to POV with Spouse and all belongings.
--- NOTE | 2019-08-12 15:53 | CM.DPNOTE ---
DC Note: Home today w/ [facility], which had already been arranged by CHARLES/MATTY team 08.11.19. Pt remains agreeable to plan. Placed call to Consuelo/Martina BEGUM and updated on DC date, faxed DC summary. P: DC home today w/spouse via pov and [facility]
== END 2019-08-12 12:43 | disposition home or self-care (01) ==
LOC: AC 08-12 09:26 → OR 08-12 15:31 → AC 08-12 15:33
PROVIDERS: Admitting Provider Orthopaedic Surgery; PCP Family Medicine; Visit Provider Orthopaedic Surgery
PROC: 0SRD0JZ Replacement of Left Knee Joint with Synthetic Substitute, Open Approach (ICD-10-PCS; CPT 27447; principal; 2019-08-10 10:45)
DX: M17.12 Unilateral primary osteoarthritis, left knee (principal); I10 Essential (primary) hypertension; R11.0 Nausea
CPT/HCPCS: 27447; 36415; 73560; 85014; 85018; 97110; 97116; 97161; 97530; C1776; G0378; C9290; J0690; J2250; J2270; J2704; J3010